=== PATIENT | male | born 1930 | race Caucasian/White ===

== ENCOUNTER 2017-06-22 10:30 | Emergency (ER) | payer MEDICARE, OTHER ==
--- NOTE | 2017-06-22 11:23 | ER Document Report ---
ED Medical Screen (RME) - General Chief Complaint: Ear Pain Stated Complaint: PAIN IN LEFT EAR Time Seen by Provider: 06/22/17 10:59 Mode of Arrival: Ambulatory Information source: Patient Notes: Patient is an 87-year-old male with 2 months of left ear pain, has been on one course of oral antibiotics for 5 days at the beginning of it who presents to the ER today because the [facility] nurse told him he needed to come "where ENT was on." Nurse told her charge nurse that he needed an urgent ENT referral. While speaking with the patient and I also found out that he has had months of constipation with approximately 1 month of dark and tarry stools. He is not on Pepto-Bismol or iron. He states that [facility] but [facility] have [facility] him off [facility] and put him on Metamucil to try to fix the "blood in my stool." He has had a colonoscopy but it has been many years. He denies abdominal pain. He takes aspirin 81 mg a day. TRAVEL OUTSIDE OF THE [place] IN LAST 30 DAYS: No - Related Data Allergies/Adverse Reactions: morphine [Morphine] Allergy (Intermediate, Verified 06/22/17 10:36) Hallucinations Past Medical History - General Information source: Patient - Past Medical History Cardiac Medical History: Reports: Hx Hypercholesterolemia - meds x 10 years, Hx Hypertension - meds x 30 years, Hx Heart Murmur - Dx'ed approx 6 years ago, denies SBE prophylaxis Denies: Hx Atrial Fibrillation, Hx Congestive Heart Failure, Hx Coronary Artery Disease, Hx Heart Attack, Hx Peripheral Vascular Disease Pulmonary Medical History: Neurological Medical History: Denies: Hx Cerebrovascular Accident, Hx Seizures Renal/ Medical History: Denies: Hx Benign Prostatic Hyperplasia, Hx End Stage Renal Disease, Hx Kidney Stones, Hx Peritoneal Dialysis GI Medical History: Reports: Hx Gastroesophageal Reflux Disease - Prilosec daily. Denies: Hx Crohn's Disease, Hx Hiatal Hernia, Hx Irritable Bowel, Hx Liver Failure, Hx Ulcer Musculoskeltal Medical History: Reports Hx Arthritis, Denies Hx Fibromyalgia, Denies Hx Multiple Sclerosis, Denies Hx Muscular Dystrophy Psychiatric Medical History: Reports: Hx Post Traumatic Stress Disorder - states Zoloft effective to decrease nighttime symptoms Denies: Hx Bipolar Disorder, Hx Dementia, Hx Depression, Hx Schizophrenia Traumatic Medical History: Reports: Hx Fractures - [place] (as child) Past Surgical History: Reports: Hx Appendectomy - 1953, Hx Herniorrhaphy - RT ing. 1991. Denies: Hx Bowel Surgery, Hx Cholecystectomy, Hx Colostomy, Hx Coronary Artery Bypass Graft, Hx Gastric Bypass Surgery, Hx Pacemaker, Hx Tonsillectomy Review of Systems - Review of Systems EENT: No symptoms reported Gastrointestinal: See HPI Physical Exam - Vital signs Vitals: Temp Pulse Resp BP Pulse Ox 97.6 F 71 16 156/68 H 97 06/22/17 10:34 06/22/17 10:34 06/22/17 10:34 06/22/17 10:34 06/22/17 10:34 - Notes Notes: PHYSICAL EXAMINATION: GENERAL: Well-appearing and in no acute distress. ENT: left ear canal with erythema, scarred appearance, dull and yellow TM NECK: Normal range of motion, supple without lymphadenopathy LUNGS: CTAB and equal. No wheezes rales or rhonchi. HEART: Regular rate and rhythm without murmurs ABDOMEN: Soft, no tenderness. No guarding, no rebound BACK: no vertebral tenderness, normal ROM GI/: no CVA tenderness EXTREMITIES: Normal range of motion, no pitting edema. No cyanosis. NEUROLOGICAL: Cranial nerves grossly intact. Normal sensory/motor exams. PSYCH: Normal mood, normal affect. SKIN: Warm, Dry, normal turgor, no rashes or lesions noted Course - Vital Signs Vital signs: Temp Pulse Resp BP Pulse Ox 97.6 F 71 16 156/68 H 97 06/22/17 10:34 06/22/17 10:34 06/22/17 10:34 06/22/17 10:34 06/22/17 10:34
--- NOTE | 2017-06-22 11:27 | ER Document Report ---
ED General - General Chief Complaint: Ear Pain Stated Complaint: PAIN IN LEFT EAR Time Seen by Provider: 06/22/17 10:59 Mode of Arrival: Ambulatory Information source: Patient Notes: Patient is an 87-year-old male with 2 months of left ear pain, has been on one course of oral antibiotics for 5 days at the beginning of it who presents to the ER today because the [facility] nurse told him he needed to come "where ENT was on." Nurse told her charge nurse that he needed an urgent ENT referral. While speaking with the patient and I also found out that he has had months of constipation with approximately 1 month of dark and tarry stools. He is not on Pepto-Bismol or iron. He states that he has told the [facility] this multiple times but they have taken him off medication and put him on Metamucil to try to fix the "blood in my stool." He has had a colonoscopy but it has been many years. He denies abdominal pain. He takes aspirin 81 mg a day. PHYSICAL EXAMINATION: TRAVEL OUTSIDE OF THE [place] IN LAST 30 DAYS: No - Related Data Allergies/Adverse Reactions: morphine [Morphine] Allergy (Intermediate, Verified 06/22/17 10:36) Hallucinations Past Medical History - General Information source: Patient - Social History Smoking Status: Never Smoker Family History: Reviewed & Not Pertinent - Past Medical History Cardiac Medical History: Reports: Hx Hypercholesterolemia - meds x 10 years, Hx Hypertension - meds x 30 years, Hx Heart Murmur - Dx'ed approx 6 years ago, denies SBE prophylaxis Denies: Hx Atrial Fibrillation, Hx Congestive Heart Failure, Hx Coronary Artery Disease, Hx Heart Attack, Hx Peripheral Vascular Disease Pulmonary Medical History: Neurological Medical History: Denies: Hx Cerebrovascular Accident, Hx Seizures Renal/ Medical History: Denies: Hx Benign Prostatic Hyperplasia, Hx End Stage Renal Disease, Hx Kidney Stones, Hx Peritoneal Dialysis GI Medical History: Reports: Hx Gastroesophageal Reflux Disease - Prilosec daily. Denies: Hx Crohn's Disease, Hx Hiatal Hernia, Hx Irritable Bowel, Hx Liver Failure, Hx Ulcer Musculoskeltal Medical History: Reports Hx Arthritis, Denies Hx Fibromyalgia, Denies Hx Multiple Sclerosis, Denies Hx Muscular Dystrophy Psychiatric Medical History: Reports: Hx Post Traumatic Stress Disorder - states Zoloft effective to decrease nighttime symptoms Denies: Hx Bipolar Disorder, Hx Dementia, Hx Depression, Hx Schizophrenia Traumatic Medical History: Reports: Hx Fractures - [place] (as child) Past Surgical History: Reports: Hx Appendectomy - 89, Hx Herniorrhaphy - RT ing. 1991. Denies: Hx Bowel Surgery, Hx Cholecystectomy, Hx Colostomy, Hx Coronary Artery Bypass Graft, Hx Gastric Bypass Surgery, Hx Pacemaker, Hx Tonsillectomy Review of Systems - Review of Systems Constitutional: No symptoms reported EENT: See HPI Cardiovascular: No symptoms reported Respiratory: No symptoms reported Gastrointestinal: See HPI Genitourinary: No symptoms reported Male Genitourinary: No symptoms reported Musculoskeletal: No symptoms reported Skin: No symptoms reported Hematologic/Lymphatic: No symptoms reported Neurological/Psychological: No symptoms reported Physical Exam - Vital signs Vitals: Temp Pulse Resp BP Pulse Ox 97.6 F 71 16 156/68 H 97 06/22/17 10:34 06/22/17 10:34 06/22/17 10:34 06/22/17 10:34 06/22/17 10:34 - Notes Notes: GENERAL: Well-appearing and in no acute distress. ENT: left ear canal with erythema, scarred appearance, dull and yellow TM NECK: Normal range of motion, supple without lymphadenopathy LUNGS: CTAB and equal. No wheezes rales or rhonchi. HEART: Regular rate and rhythm without murmurs ABDOMEN: Soft, mild periumbilical tenderness. No guarding, no rebound BACK: no vertebral tenderness, normal ROM GI/: no CVA tenderness rectal: normal tone, no obvious blood, no hemorrhoids noted EXTREMITIES: Normal range of motion, no pitting edema. No cyanosis. NEUROLOGICAL: Cranial nerves grossly intact. Normal sensory/motor exams. PSYCH: Normal mood, normal affect. SKIN: Warm, Dry, normal turgor, no rashes or lesions noted Course - Re-evaluation Re-evalutation: 06/22/17 18:30 Pt has a hgb of 12, negative occult stool today, I gave him ciprodex for his otitis externa from the ER to go home with for entire course and gave him info for GI and ENT to follow up with. - Vital Signs Vital signs: Temp Pulse Resp BP Pulse Ox 97.8 F 64 18 136/64 H 96 06/22/17 14:00 06/22/17 14:00 06/22/17 14:00 06/22/17 14:00 06/22/17 14:00 - Laboratory Result Diagrams: 06/22/17 11:50 06/22/17 11:50 Laboratory results interpreted by me: 06/22/17 06/22/17 06/22/17 11:25 11:50 11:50 RBC 3.93 L Hgb 12.5 L Hct 37.3 L Plt Count 120 L BUN 25 H AST 16 L Ur Leukocyte Esterase TRACE H Urine Ascorbic Acid 40 H Discharge - Discharge Clinical Impression: Dark stools Diffuse otitis externa, left ear Qualifiers: Chronicity: acute Qualified Code(s): H60.312 - Diffuse otitis externa, left ear Constipation Qualifiers: Constipation type: unspecified constipation type Qualified Code(s): K59.00 - Constipation, unspecified Condition: Stable Disposition: HOME, SELF-CARE Instructions: Use of Ear Drops ([facility]), Otitis Externa ([facility]) Additional Instructions: Return immediately for any new or worsening symptoms. Follow up with primary care provider, call tomorrow to make followup appointment. USE THE EAR DROPS, 4 DROPS IN THE LEFT EAR TWICE A DAY FOR 10 DAYS. CALL EAR NOSE AND THROAT BELOW TO MAKE AN APPOINTMENT TO CHECK THE EAR. CALL TODAY. CALL GASTROENTEROLOGY TO DISCUSS THE CONSTIPATION AND DARK STOOLS. CALL TODAY. Prescriptions: Polyethylene Glycol 3350 [Miralax] 1 cap PO DAILY #527 powder Referrals: VENKATA JACOBS MD [ACTIVE STAFF] - Follow up as needed [facility] [Provider Group] - Follow up as needed
[2017-06-22 11:55] LABS: APPEARANCE,URINE SLIGHTLY-CLOUDY; BILIRUBIN,URINE NEGATIVE (NEGATIVE); GLUCOSE, URINE NEGATIVE (NEGATIVE); KETONES,URINE NEGATIVE (NEGATIVE); LEUKOCYTE ESTERASE,URINE TRACE (NEGATIVE); NITRITE,URINE NEGATIVE (NEGATIVE); PROTEIN,URINE NEGATIVE (NEGATIVE); URINE SPECIFIC GRAVITY 1.016; UROBILINOGEN,URINE NEGATIVE mg/dL (<2.0)
[2017-06-22 12:38] LABS: ABSOLUTE LYMPHOCYTES (AUTO) 1.2 10^3/uL (0.5-4.7); ABSOLUTE MONOCYTES (AUTO) 0.5 10^3/uL (0.1-1.4); ABSOLUTE NEUT (AUTO) 4.6 10^3/uL (1.7-8.2); BASOPHILS % (AUTO) 0.4 % (0-2); EOSINOPHILS % (AUTO) 0.6 % (0-6); HEMATOCRIT 37.3 % (37.9-51.0); HEMOGLOBIN 12.5 g/dL (13.5-17.0); HGB HCT DIFFERENCE 0.2; LYMPHOCYTES % (AUTO) 18.8 % (13-45); MEAN CORPUSCULAR HEMOGLOBIN 31.9 pg (27.0-33.4); MEAN CORPUSCULAR HGB CONC 33.6 g/dL (32.0-36.0); MEAN CORPUSCULAR VOLUME 95 fl (80-97); MONOCYTES % (AUTO) 8.4 % (3-13); RED BLOOD COUNT 3.93 10^6/uL (4.35-5.55); SEGMENTED NEUTROPHILS % (AUTO) 71.8 % (42-78); WHITE BLOOD COUNT 6.4 10^3/uL (4.0-10.5)
[2017-06-22 12:54] LABS: ALANINE AMINOTRANSFERASE 24 U/L (21-72); ALBUMIN 3.7 g/dL (3.5-5.0); ALKALINE PHOSPHATASE 85 U/L (38-126); ANION GAP 8 (5-19); ASPARTATE AMINO TRANSFERASE 16 U/L (17-59); BILIRUBIN,DIRECT 0.3 mg/dL (0.0-0.4); BILIRUBIN,TOTAL 0.5 mg/dL (0.2-1.3); BLOOD UREA NITROGEN 25 mg/dL (7-20); CALCIUM 8.8 mg/dL (8.4-10.2); CARBON DIOXIDE 30 mmol/L (22-30); CHLORIDE 102 mmol/L (98-107); GLUCOSE 92 mg/dL (75-110); POTASSIUM 4.4 mmol/L (3.6-5.0); PROTHROMBIN TIME 13.5 SEC (11.4-15.4); SODIUM 139.8 mmol/L (137-145); TOTAL PROTEIN 6.4 g/dL (6.3-8.2)
[2017-06-22 12:55] LABS: PARTIAL THROMBOPLASTIN TIME 31.2 SEC (23.5-35.8)
[2017-06-22] MEDS ORDERED: CIPROFLOXACIN HCL/DEXAMETH OTIC DROP 7.5 ML AS ONE (13:45)
[2017-06-22 14:03] VITALS: BP 136/64
== END 2017-06-22 14:12 | disposition home or self-care (01) ==
LOC: ER 10:30
DX: H60.312 Diffuse otitis externa, left ear (principal); K59.00 Constipation, unspecified; R19.5 Other fecal abnormalities; H92.02 Otalgia, left ear; I10 Essential (primary) hypertension; Z79.82 Long term (current) use of aspirin; Z79.899 Other long term (current) drug therapy; Z88.5 Allergy status to narcotic agent; Z90.49 Acquired absence of other specified parts of digestive tract
CPT/HCPCS: 99283; 86900; 86901; 36415; 86850; 85025; 85610; 85730; 82272; 80053; 81001; J3490

== ENCOUNTER 2017-07-06 11:10 | Day surgery (SDC) | payer MEDICARE, OTHER ==
[2017-07-06] MEDS ORDERED: DIPHENHYDRAMINE HCL 50 MG/ML VIAL ONE (11:31)
[2017-07-06] MEDS ORDERED: ONDANSETRON HCL INJ/PF 4 MG/2 ML SDV ONE (11:32)
[2017-07-06] MEDS ORDERED: FENTANYL CITRATE INJ/PF 100 MCG/2 ML AMPUL ONE (11:32)
[2017-07-06] MEDS ORDERED: MIDAZOLAM 2 MG/2 ML INJ ONE ×2 (11:32)
[2017-07-06] MEDS ORDERED: NALOXONE HCL INJ/PF 0.4 MG/1 ML SDV ONE (11:32)
[2017-07-06] MEDS ORDERED: EPINEPHRINE INJ 1 MG/10 ML DISP.SYRIN ONE (11:33)
[2017-07-06] MEDS ORDERED: FLUMAZENIL INJ 0.5 MG/5 ML VIAL ONE (11:33)
[2017-07-06] MEDS ORDERED: GLUCAGON,HUMAN RECOMB 1 MG INJ ONE (11:33)
[2017-07-06 14:09] VITALS: BP 141/66
--- NOTE | 2017-07-06 14:11 | Operative Report ---
Operative Report DATE OF SURGERY: 07/06/17 Operative Report: The risks, benefits and alternatives of the procedure including risks of bleeding, perforation requiring surgery are explained to the patient detail and informed consent is obtained. Patient was taken back to the endoscopy suite and placed in the left, lateral decubital position. Timeout was called. Conscious sedation medications are provided. An Olympus videoscope was inserted into the patient's rectum. The scope was then carefully advanced all the way to the cecum. The cecum was identified by the usual anatomical landmarks of the ileocecal valve as well as the appendiceal office. Photodocumentation is obtained. Prep is good. Scope was then sequentially pulled back via the various segments of the colon including the ascending colon , hepatic flexure, transverse colon, splenic flexure, descending colon finding to the rectosigmoid portions of the colon. Retroflexion maneuver was performed. The risks benefits and alternatives of the procedure explained to the patient in detail and informed consent is obtained.A GIF Olympus video scope was inserted into the patient's mouth and hypopharynx the esophagus is identified intubated and insufflated, the scope was then advanced through the esophagus stomach and duodenum, retroflexion maneuver is done, the esophagus stomach and first and second portions of the duodenum examined PREOPERATIVE DIAGNOSIS: Melena. Change of bowel habits POSTOPERATIVE DIAGNOSIS: Mild inflammation in the colon. Polyp noted at the ascending colon area removed via snare polypectomy. Internal hemorrhoids. Gastritis noted status post biopsy rule out Helicobacter pylori. No active bleeding is noted OPERATION: Colonoscopy with snare polypectomy. EGD with biopsy SURGEON: VENKATA JACOBS ANESTHESIA: Moderate Sedation - 2 mg of Versed, 12.5 mg of fentanyl. Conscious sedation monitoring time 30 minutes. TISSUE REMOVED OR ALTERED: Tissue was removed noted above COMPLICATIONS: None. ESTIMATED BLOOD LOSS: None. INTRAOPERATIVE FINDINGS: As described above. PROCEDURE: Patient tolerated the procedure well. No immediate postprocedure complications are noted. Patient discharged in good condition. Discharge date 07/06/2017. Discharge diet: Regular. Discharge activity: Regular. 2-3 week follow-up to discuss findings. Patient is instructed to call the office or proceed to the emergency room should there be any further problems or questions. We will wait on pathology. While the patient does need a surveillance colonoscopy in 5 years at that point his overall performance status, and clinical condition will will dictate whether or not the colonoscopy is done
== END 2017-07-06 14:15 | disposition home or self-care (01) ==
LOC: END 11:10
PROVIDERS: ATTEND Internal Medicine Gastroenterology
PROC: 0DB68ZX Excision of Stomach, Via Natural or Artificial Opening Endoscopic, Diagnostic (ICD-10-PCS; principal; 2017-07-06 12:00)
PROC: 0DBK8ZX Excision of Ascending Colon, Via Natural or Artificial Opening Endoscopic, Diagnostic (ICD-10-PCS; 2017-07-06 12:00)
DX: K29.50 Unspecified chronic gastritis without bleeding (principal); D12.2 Benign neoplasm of ascending colon; K64.8 Other hemorrhoids; K52.9 Noninfective gastroenteritis and colitis, unspecified; R63.4 Abnormal weight loss; Z79.82 Long term (current) use of aspirin; Z79.899 Other long term (current) drug therapy; Z68.20 Body mass index [BMI] 20.0-20.9, adult
CPT/HCPCS: 43239; 45385; 88305 ×2; J2250; J3010; J0171; J1200; J1610; J2310; J2405; J3490

== ENCOUNTER 2017-09-23 21:28 | Emergency (ER) | payer MEDICARE, OTHER ==
[2017-09-23 21:55] VITALS: BP 159/75
--- NOTE | 2017-09-23 23:54 | ER Document Report ---
HPI - HPI Patient complains to provider of: Left ear pain, hearing aid will not fit in ear Onset: Other - Several days Onset/Duration: Persistent Quality of pain: Achy Pain Level: 3 Context: Patient complains of left ear discomfort and feels that his ear is swollen causing his hearing aid to not fit properly. Patient states he has been unable to wear his hearing aid. Patient did recently have skin biopsies performed on his left shoulder. Patient is concerned that he is having problems with his hearing aid due to his recent skin biopsies. Patient without any fever. Patient without any drainage from his ear. Associated Symptoms: Earache Exacerbated by: Denies Relieved by: Denies Similar symptoms previously: No Recently seen / treated by doctor: Yes - ROS ROS below otherwise negative: Yes Systems Reviewed and Negative: Yes All other systems reviewed and negative - CONSTITUTIONAL Constitutional: DENIES: Fever - EENT EENT: REPORTS: Ear Pain. DENIES: Congestion - RESPIRATORY Respiratory: DENIES: Coughing - GASTROINTESTINAL Gastrointestinal: DENIES: Nausea, Patient vomiting - REPRODUCTIVE Reproductive: DENIES: : - DERM Skin Color: Normal Notes: Wounds to left shoulder from recent skin biopsies Past Medical History - General Information source: Patient - Social History Smoking Status: Never Smoker Frequency of alcohol use: None Drug Abuse: None Occupation: Retired Family History: Reviewed & Not Pertinent - Past Medical History Cardiac Medical History: Reports: Hx Hypercholesterolemia - meds x 10 years, Hx Hypertension - HX OF (TOOK OFF MEDS), Hx Heart Murmur - Dx'ed approx 6 years ago , denies SBE prophylaxis Denies: Hx Atrial Fibrillation, Hx Congestive Heart Failure, Hx Coronary Artery Disease, Hx Heart Attack, Hx Peripheral Vascular Disease Pulmonary Medical History: Denies: Hx Asthma, Hx Bronchitis, Hx COPD, Hx Pneumonia Neurological Medical History: Denies: Hx Cerebrovascular Accident, Hx Seizures Renal/ Medical History: Denies: Hx Benign Prostatic Hyperplasia, Hx End Stage Renal Disease, Hx Kidney Stones, Hx Peritoneal Dialysis GI Medical History: Reports: Hx Gastroesophageal Reflux Disease - Prilosec daily. Denies: Hx Crohn's Disease, Hx Hiatal Hernia, Hx Irritable Bowel, Hx Liver Failure, Hx Pancreatitis, Hx Ulcer Musculoskeltal Medical History: Reports Hx Arthritis, Denies Hx Fibromyalgia, Denies Hx Multiple Sclerosis, Denies Hx Muscular Dystrophy Psychiatric Medical History: Reports: Hx Post Traumatic Stress Disorder - states Zoloft effective to decrease nighttime symptoms Denies: Hx Bipolar Disorder, Hx Dementia, Hx Depression, Hx Schizophrenia Traumatic Medical History: Reports: Hx Fractures - [place] (as child) Past Surgical History: Reports: Hx Appendectomy - 89, Hx Herniorrhaphy - RT ing. 1991. Denies: Hx Bowel Surgery, Hx Cholecystectomy, Hx Colostomy, Hx Coronary Artery Bypass Graft, Hx Gastric Bypass Surgery, Hx Pacemaker, Hx Tonsillectomy - Immunizations Hx Diphtheria, Pertussis, Tetanus Vaccination: No Vertical Provider Document - CONSTITUTIONAL Agree With Documented VS: Yes Exam Limitations: No Limitations General Appearance: WD/WN, No Apparent Distress - INFECTION CONTROL TRAVEL OUTSIDE OF THE [place] IN LAST 30 DAYS: No - HEENT HEENT: Atraumatic, Normocephalic Notes: Mild excess cerumen to left external auditory canal. No swelling to left external auditory canal, no drainage to canal. No mastoid tenderness or swelling. No pain with movement of the helix. - NECK Neck: Normal Inspection, Supple - RESPIRATORY Respiratory: Breath Sounds Normal, No Respiratory Distress O2 Sat by Pulse Oximetry: 94 - CARDIOVASCULAR Cardiovascular: Regular Rate, Regular Rhythm - MUSCULOSKELETAL/EXTREMETIES Musculoskeletal/Extremeties: MAEW - NEURO Level of Consciousness: Awake, Alert, Appropriate Motor/Sensory: No Motor Deficit - DERM Integumentary: Warm, Dry Notes: Patient skin biopsy site to left shoulder area, no surrounding erythema, wounds appear to be healing appropriately Course - Re-evaluation Re-evalutation: 09/24/17 Excessive cerumen removed from left ear canal with curette - Vital Signs Vital signs: Temp Pulse Resp BP Pulse Ox 98.5 F 67 18 159/75 H 94 09/23/17 21:52 09/23/17 21:52 09/23/17 21:52 09/23/17 21:52 09/23/17 21:52 Discharge - Discharge Clinical Impression: Otalgia of left ear, hearing aid not fitting, Excessive cerumen in left ear canal, Hx of essential hypertension Condition: Stable Disposition: HOME, SELF-CARE Instructions: Cerumen Impaction ([facility]) Additional Instructions: Follow-up with your doctor that fit you with the hearing aid for recheck Return immediately for any new or worsening symptoms Followup with your primary care provider, call tomorrow to make a followup appointment Referrals: [facility] [Provider Group] - Follow up as needed
== END 2017-09-24 00:01 | disposition home or self-care (01) ==
LOC: ER 21:28
DX: H92.02 Otalgia, left ear (principal); H61.22 Impacted cerumen, left ear; Z46.2 Encounter for fitting and adjustment of other devices related to nervous system and special senses; I10 Essential (primary) hypertension; E78.00 Pure hypercholesterolemia, unspecified
CPT/HCPCS: 99282

== ENCOUNTER 2018-04-11 18:47 | Inpatient (IN) | payer MEDICARE, OTHER ==
[2018-04-11 20:37] LABS: ABSOLUTE LYMPHOCYTES (AUTO) 0.9 10^3/uL (0.5-4.7); ABSOLUTE MONOCYTES (AUTO) 0.9 10^3/uL (0.1-1.4); ABSOLUTE NEUT (AUTO) 12.6 10^3/uL (1.7-8.2); BASOPHILS % (AUTO) 0.1 % (0-2); HEMATOCRIT 32.8 % (37.9-51.0); HEMOGLOBIN 11.1 g/dL (13.5-17.0); LYMPHOCYTES % (AUTO) 6.4 % (13-45); MEAN CORPUSCULAR HEMOGLOBIN 32.7 pg (27.0-33.4); MEAN CORPUSCULAR HGB CONC 33.8 g/dL (32.0-36.0); MEAN CORPUSCULAR VOLUME 97 fl (80-97); MONOCYTES % (AUTO) 6.3 % (3-13); PLATELET COUNT 141 10^3/uL (150-450); RED BLOOD COUNT 3.39 10^6/uL (4.35-5.55); SEGMENTED NEUTROPHILS % (AUTO) 87.2 % (42-78); TOTAL CELLS COUNTED % (AUTO) 100 %; WHITE BLOOD COUNT 14.5 10^3/uL (4.0-10.5)
--- NOTE | 2018-04-11 20:42 | RADIOLOGY REPORT (SQ) ---
EXAM DESCRIPTION: CT HEAD WITHOUT COMPLETED DATE/TIME: 04/11/2018 8:10 pm REASON FOR STUDY: fall COMPARISON: None. TECHNIQUE: Axial images acquired through the brain without intravenous contrast. Images reviewed wi th bone, brain and subdural windows. Images stored on PACS. All CT scanners at this facility use dose modulation, iterative reconstruction, and/or weight based d osing when appropriate to reduce radiation dose to as low as reasonably achievable (ALARA). [facility]: Dose Right [facility]: CareDose [facility]: Dose Right [facility]: Teradose 4D [facility]: Roomish RADIATION DOSE: CT Rad equipment meets quality standard of care and radiation dose reduction techniq ues were employed. CTDIvol: 53.2 mGy. DLP: 1017 mGy-cm. mGy. LIMITATIONS: None. FINDINGS: VENTRICLES: Age-appropriate. CEREBRUM: No masses. No hemorrhage. No midline shift. Areas of low density in the white matter mos t likely due to chronic micro-vascular ischemic change. No evidence for acute infarction. CEREBELLUM: No masses. No hemorrhage. No alteration of density. No evidence for acute infarction. EXTRAAXIAL SPACES: Mild age-related involutional change. No fluid collections. No masses. ORBITS AND GLOBE: No intra- or extraconal masses. Normal contour of globe without masses. CALVARIUM: No fracture. PARANASAL SINUSES: No fluid or mucosal thickening. SOFT TISSUES: No mass or hematoma. OTHER: No other significant finding. IMPRESSION: No acute intracranial findings. EVIDENCE OF ACUTE STROKE: NO. TECHNICAL DOCUMENTATION: JOB ID: [id number] [place]-72 Quality ID # [id number]: Final reports with documentation of one or more dose reduction techniques (e.g., Au tomated exposure control, adjustment of the mA and/or kV according to patient size, use of iterative reconstruction technique) 2010 [employer]- All Rights Reserved Reading location - IP/workstation name: [email or web address]
--- NOTE | 2018-04-11 20:44 | RADIOLOGY REPORT (SQ) ---
EXAM DESCRIPTION: CT CERVICAL SPINE WITHOUT COMPLETED DATE/TIME: 04/11/2018 8:10 pm REASON FOR STUDY: fall COMPARISON: None. TECHNIQUE: Axial images acquired through the cervical spine without intravenous contrast. Images re viewed with lung, soft tissue and bone windows. Reconstructed coronal and sagittal MPR images review ed. Images stored on PACS. All CT scanners at this facility use dose modulation, iterative reconstruction, and/or weight based d osing when appropriate to reduce radiation dose to as low as reasonably achievable (ALARA). [facility]: Dose Right [facility]: CareDose [facility]: Dose Right [facility]: Teradose 4D [facility]: [employer] RADIATION DOSE: CT Rad equipment meets quality standard of care and radiation dose reduction techniq ues were employed. CTDIvol: 22.2 mGy. DLP: 456 mGy-cm. mGy. LIMITATIONS: None. FINDINGS: ALIGNMENT: Anatomic. MINERALIZATION: Normal. VERTEBRAL BODIES: No fractures or dislocation. DISCS: Multilevel disc space narrowing with osteophytes. FACETS, LATERAL MASSES, POSTERIOR ELEMENTS: Facet arthropathy. No fractures. No dislocation. No ac [place] findings. HARDWARE: None in the spine. VISUALIZED RIBS: No fractures. LUNG APICES AND SOFT TISSUES: No significant or acute findings. OTHER: No other significant finding. IMPRESSION: CHRONIC DEGENERATIVE CHANGES. NO ACUTE FINDINGS. TECHNICAL DOCUMENTATION: JOB ID: [id number] [place]-72 Quality ID # [id number]: Final reports with documentation of one or more dose reduction techniques (e.g., Au tomated exposure control, adjustment of the mA and/or kV according to patient size, use of iterative reconstruction technique) 2010 [employer]- All Rights Reserved Reading location - IP/workstation name: [email or web address]
--- NOTE | 2018-04-11 20:46 | RADIOLOGY REPORT (SQ) ---
EXAM DESCRIPTION: PELVIS AP COMPLETED DATE/TIME: 04/11/2018 8:11 pm REASON FOR STUDY: fall COMPARISON: None. NUMBER OF VIEWS: One view TECHNIQUE: AP Pelvis LIMITATIONS: None. FINDINGS: MINERALIZATION: Normal. HIPS: No acute fracture or dislocation. No worrisome bone lesions. PELVIS AND SACRUM: No acute fracture or dislocation. No worrisome bone lesions. PUBIS AND ISCHIUM: No acute fracture. LOWER LUMBAR SPINE: Moderate degenerative changes. SOFT TISSUES: No findings. OTHER: No other significant finding. IMPRESSION: No fracture identified. TECHNICAL DOCUMENTATION: JOB ID: [id number] [place]-72 2010 [employer]- All Rights Reserved Reading location - IP/workstation name: [email or web address]
--- NOTE | 2018-04-11 20:50 | RADIOLOGY REPORT (SQ) ---
EXAM DESCRIPTION: KNEE RIGHT 4 VIEWS COMPLETED DATE/TIME: 04/11/2018 8:11 pm REASON FOR STUDY: fall COMPARISON: None. NUMBER OF VIEWS: Four views. TECHNIQUE: AP, lateral, and both oblique radiographic images acquired of the right knee. LIMITATIONS: None. FINDINGS: MINERALIZATION: Osteopenia. BONES: No acute fracture or dislocation. Right total knee arthroplasty hardware appears stable. . JOINT: Small effusion. SOFT TISSUES: No soft tissue swelling. No radio-opaque foreign body. OTHER: No other significant finding. IMPRESSION: Small joint effusion. No fracture identified. TECHNICAL DOCUMENTATION: JOB ID: [id number] [place]-72 2010 [employer]- All Rights Reserved Reading location - IP/workstation name: [email or web address]
[2018-04-11] MEDS ORDERED: NORMAL SALINE 1000 ML 1,000 ML IV ONE ×2 (20:51→21:53)
--- NOTE | 2018-04-11 20:59 | ER Document Report ---
ED General - General Chief Complaint: Fall Stated Complaint: FALL GENERALIZED PAIN Time Seen by Provider: 04/11/18 19:07 Mode of Arrival: Medic Information source: Patient, Relative, [facility] Records Notes: 87-year-old male with spinal stenosis, neuropathy, chronic leg pain presents via EMS from home after his son found him laying on the ground at home. Patient does not recall the fall. He is alert and oriented 2 which the son's report is not his baseline. Last seen well was yesterday evening. Patient does have a history of frequent falls. He was recently seen by orthopedic surgery and an MRI was performed. Family reports that the patient is to undergo spinal injections tomorrow. Patient is not on any blood thinning medications. TRAVEL OUTSIDE OF THE [place] IN LAST 30 DAYS: No - HPI Onset: Other Onset/Duration: Sudden, Persistent Quality of pain: Burning, Throbbing Associated symptoms: denies: Chest pain, Shortness of breath Exacerbated by: Denies Relieved by: Denies Similar symptoms previously: Yes Recently seen / treated by doctor: No - Related Data Allergies/Adverse Reactions: morphine [Morphine] Allergy (Intermediate, Verified 04/11/18 19:05) Hallucinations Past Medical History - General Information source: Relative, [facility] Records Cannot obtain history due to: Altered mental status - Social History Smoking Status: Unknown if Ever Smoked Frequency of alcohol use: None Drug Abuse: None Lives with: Alone Family History: Reviewed & Not Pertinent Patient has suicidal ideation: No Patient has homicidal ideation: No - Past Medical History Cardiac Medical History: Reports: Hx Hypercholesterolemia - meds x 10 years, Hx Hypertension - HX OF (TOOK OFF MEDS), Hx Heart Murmur - Dx'ed approx 6 years ago , denies SBE prophylaxis Denies: Hx Atrial Fibrillation, Hx Congestive Heart Failure, Hx Coronary Artery Disease, Hx Heart Attack, Hx Peripheral Vascular Disease Pulmonary Medical History: Denies: Hx Asthma, Hx Bronchitis, Hx COPD, Hx Pneumonia Neurological Medical History: Denies: Hx Cerebrovascular Accident, Hx Seizures Renal/ Medical History: Denies: Hx Benign Prostatic Hyperplasia, Hx End Stage Renal Disease, Hx Kidney Stones, Hx Peritoneal Dialysis GI Medical History: Reports: Hx Gastroesophageal Reflux Disease - Prilosec daily. Denies: Hx Crohn's Disease, Hx Hiatal Hernia, Hx Irritable Bowel, Hx Liver Failure, Hx Pancreatitis, Hx Ulcer Musculoskeltal Medical History: Reports Hx Arthritis, Denies Hx Fibromyalgia, Denies Hx Multiple Sclerosis, Denies Hx Muscular Dystrophy Psychiatric Medical History: Reports: Hx Post Traumatic Stress Disorder - states Zoloft effective to decrease nighttime symptoms Denies: Hx Bipolar Disorder, Hx Dementia, Hx Depression, Hx Schizophrenia Traumatic Medical History: Reports: Hx Fractures - carrington arms (as child) Past Surgical History: Reports: Hx Appendectomy - 1952, Hx Herniorrhaphy - RT ing. 1991. Denies: Hx Bowel Surgery, Hx Cholecystectomy, Hx Colostomy, Hx Coronary Artery Bypass Graft, Hx Gastric Bypass Surgery, Hx Pacemaker, Hx Tonsillectomy - Immunizations Hx Diphtheria, Pertussis, Tetanus Vaccination: No Review of Systems - Review of Systems Constitutional: Malaise, Weakness EENT: denies: Blurred vision Cardiovascular: denies: Chest pain, Palpitations Respiratory: denies: Short of breath Gastrointestinal: denies: Abdominal pain Genitourinary: denies: Dysuria, Flank pain, Incontinence Male Genitourinary: No symptoms reported Musculoskeletal: Back pain, Muscle pain, Muscle stiffness. denies: Deformity Skin: Dryness Hematologic/Lymphatic: denies: Easy bleeding Neurological/Psychological: Confusion, Weakness, Gait changes -: Yes All other systems reviewed and negative Physical Exam - Vital signs Vitals: Resp BP Pulse Ox 20 140/62 H 99 04/11/18 19:34 04/11/18 19:34 04/11/18 19:34 - Notes Notes: PHYSICAL EXAMINATION: GENERAL: Well-appearing, well-nourished and in no acute distress. HEAD: Atraumatic, normocephalic. EYES: Pupils equal round and reactive to light, extraocular movements intact, sclera anicteric, conjunctiva are normal. ENT: Nares patent, oropharynx clear without exudates. dry mucous membranes. NECK: Normal range of motion, supple without lymphadenopathy LUNGS: Breath sounds clear to auscultation bilaterally and equal. No wheezes rales or rhonchi. HEART: Regular rate and rhythm without murmurs ABDOMEN: Soft, nontender, nondistended abdomen. No guarding, no rebound. No masses appreciated. Musculoskeletal: Normal range of motion, no pitting or edema. No cyanosis. Bilateral knee scar C/D/I/ mild erythema to the left hand. pelvis stable. No obvious deformity NEUROLOGICAL: Cranial nerves grossly intact. Normal sensory, motor exams. Patient alert and oriented 2. Amnestic to events. PSYCH: Normal mood, normal affect. SKIN: Warm, Dry, normal turgor, no rashes or lesions noted. Course - Re-evaluation Re-evalutation: Laboratory 04/11/18 04/11/18 04/11/18 20:30 20:30 20:30 WBC 14.5 H RBC 3.39 L Hgb 11.1 L Hct 32.8 L MCV 97 MCH 32.7 MCHC 33.8 RDW 12.0 Plt Count 141 L Seg Neutrophils % 87.2 H Lymphocytes % 6.4 L Monocytes % 6.3 Eosinophils % 0.0 Basophils % 0.1 Absolute Neutrophils 12.6 H Absolute Lymphocytes 0.9 Absolute Monocytes 0.9 Absolute Eosinophils 0.0 Absolute Basophils 0.0 Sodium 142.1 Potassium 4.4 Chloride 109 H Carbon Dioxide 25 Anion Gap 8 BUN 22 H Creatinine 0.86 Est GFR ( Amer) > 60 Est GFR (Non-Af Amer) > 60 Glucose 114 H Calcium 9.0 Total Bilirubin 1.5 H Direct Bilirubin 0.3 Neonat Total Bilirubin Not Reportable Neonat Direct Bilirubin Not Reportable Neonat Indirect Bili Not Reportable AST 67 H ALT 37 Alkaline Phosphatase 77 Creatine Kinase 1425 H CK-MB (CK-2) 13.60 H Troponin I 0.021 Total Protein 5.8 L Albumin 3.[address] 04/11/18 19:09 IMPRESSION: No acute intracranial findings. EVIDENCE OF ACUTE STROKE: NO. Pelvis X-Ray 04/11/18 19:09 IMPRESSION: No fracture identified. Cervical Spine CT 04/11/18 19:20 IMPRESSION: CHRONIC DEGENERATIVE CHANGES. NO ACUTE FINDINGS. Knee X-Ray 04/11/18 19:21 IMPRESSION: Small joint effusion. No fracture identified. 04/11/18 22:27 Hospitalist consulted for admission 04/11/18 22:27 04/11/18 23:06 87-year-old male with spinal stenosis, neuropathy, chronic leg pain presents via EMS from home after his son found him laying on the ground at home. Patient does not recall the fall. He is alert and oriented 2 which the son's report is not his baseline. Last seen well was yesterday evening. Patient does have a history of frequent falls. Patient was seen by myself upon arrival. Vital signs were reviewed. Patient is afebrile, normotensive and not hypoxic. Patient does not appear toxic he does appear mildly dehydrated. They are in no acute distress. Previous medical records and nursing notes reviewed. Significant findings include CBC with a leukocytosis and mild anemia. CMP is without electrolyte abnormalities. Patient does have a elevated CK-MB and CK. Urinalysis is not consistent with infection. CT of the head and neck were obtained and showed no acute findings. X-ray of the right knee was obtained and significant for a small joint effusion but no fracture. Pelvis x-ray is without fracture. Patient did receive IV fluids. Sons are at the bedside and reports that the patient is a full code. He lives alone and has recently had physical therapy started. Sons have discussed with the patient his ability to care for himself in this patient remains persistent that he wants to stay in his house. Patient admitted to the hospitalist for altered mental status, rhabdomyolysis. 04/11/18 23:06 04/11/18 23:45 - Vital Signs Vital signs: Temp Pulse Resp BP Pulse Ox 98.3 F 74 15 114/65 95 04/11/18 19:36 04/11/18 19:36 04/11/18 23:01 04/11/18 23:01 04/11/18 23:01 - Laboratory Result Diagrams: 04/11/18 20:30 04/11/18 20:30 Laboratory results interpreted by me: 04/11/18 04/11/18 04/11/18 20:30 20:30 20:30 WBC 14.5 H RBC 3.39 L Hgb 11.1 L Hct 32.8 L Plt Count 141 L Seg Neutrophils % 87.2 H Lymphocytes % 6.4 L Absolute Neutrophils 12.6 H Chloride 109 H BUN 22 H Glucose 114 H Total Bilirubin 1.5 H AST 67 H Creatine Kinase 1425 H CK-MB (CK-2) 13.60 H Total Protein 5.8 L Albumin 3.2 L 04/11/18 04/11/18 22:40 22:40 WBC RBC Hgb Hct Plt Count Seg Neutrophils % Lymphocytes % Absolute Neutrophils Chloride BUN Glucose Total Bilirubin AST Creatine Kinase 1264 H CK-MB (CK-2) 11.70 H Total Protein Albumin - Diagnostic Test Radiology reviewed: Image reviewed, Reports reviewed - EKG Interpretation by Me EKG shows normal: Sinus rhythm Rate: Normal Rhythm: NSR Discharge - Discharge Clinical Impression: Confusion, Dehydration Fall Qualifiers: Encounter type: initial encounter Qualified Code(s): W19.XXXA - Unspecified fall, initial encounter Rhabdomyolysis Qualifiers: Rhabdomyolysis type: traumatic Encounter type: initial encounter Qualified Code (s): T79.6XXA - Traumatic ischemia of muscle, initial encounter Chronic back pain Qualifiers: Back pain location: low back pain Back pain laterality: bilateral Sciatica presence: with sciatica Sciatica laterality: sciatica laterality unspecified Qualified Code(s): M54.40 - Lumbago with sciatica, unspecified side Spinal stenosis Qualifiers: Spinal region: unspecified Qualified Code(s): M48.00 - Spinal stenosis, site unspecified Condition: Good Disposition: ADMITTED OBSERVATION Admitting Provider: Hospitalist Unit Admitted: Telemetry
[2018-04-11 21:04] LABS: ALANINE AMINOTRANSFERASE 37 U/L (21-72); ALBUMIN 3.2 g/dL (3.5-5.0); ALKALINE PHOSPHATASE 77 U/L (38-126); ANION GAP 8 (5-19); ASPARTATE AMINO TRANSFERASE 67 U/L (17-59); BILIRUBIN,DIRECT 0.3 mg/dL (0.0-0.4); BILIRUBIN,TOTAL 1.5 mg/dL (0.2-1.3); BLOOD UREA NITROGEN 22 mg/dL (7-20); CARBON DIOXIDE 25 mmol/L (22-30); CHLORIDE 109 mmol/L (98-107); CREATINE KINASE 1425 U/L (55-170); GLUCOSE 114 mg/dL (75-110); POTASSIUM 4.4 mmol/L (3.6-5.0); SODIUM 142.1 mmol/L (137-145); TOTAL PROTEIN 5.8 g/dL (6.3-8.2)
[2018-04-11 21:05] LABS: CREATINE KINASE MB 13.6 ng/mL (<4.55)
[2018-04-11 21:43] LABS: TROPONIN I 0.021 ng/mL
--- NOTE | 2018-04-11 22:31 | EKG REPORT ---
SEVERITY:- NORMAL ECG - SINUS RHYTHM : Confirmed by: Ellen Martin MD 11-Apr-2018 22:30:51
[2018-04-11] MEDS ORDERED: IPRATROPIUM/ALBUTEROL 0.5-2.5 MG/3 ML AMPUL NEB PRN (22:36)
[2018-04-11] MEDS ORDERED: MAGNESIUM HYDROXIDE SUSP 30 ML UDCUP PO PRN (22:36)
[2018-04-11] MEDS ORDERED: MAG HYDROX/AL HYDROX/SIMETH SUSP 30 ML UDCUP PO PRN (22:36)
[2018-04-11 22:40] LABS: APPEARANCE,URINE SLIGHTLY-CLOUDY; BILIRUBIN,URINE NEGATIVE (NEGATIVE); COLOR,URINE YELLOW; GLUCOSE, URINE NEGATIVE (NEGATIVE); KETONES,URINE NEGATIVE (NEGATIVE); LEUKOCYTE ESTERASE,URINE NEGATIVE (NEGATIVE); NITRITE,URINE NEGATIVE (NEGATIVE); PROTEIN,URINE NEGATIVE (NEGATIVE); URINE SPECIFIC GRAVITY 1.021; UROBILINOGEN,URINE NEGATIVE mg/dL (<2.0)
[2018-04-11] MEDS ORDERED: NORMAL SALINE 1000 ML 1,000 ML IV SCH (22:45)
[2018-04-11 23:23] LABS: CREATINE KINASE MB 11.7 ng/mL (<4.55); TROPONIN I 0.02 ng/mL
[2018-04-11 23:30] LABS: URINE AMPHETAMINES SCREEN NEGATIVE; URINE BARBITURATES SCREEN NEGATIVE; URINE BENZODIAZEPINES SCREEN NEGATIVE; URINE COCAINE SCREEN NEGATIVE; URINE MARIJUANA (THC) SCREEN NEGATIVE; URINE METHADONE SCREEN NEGATIVE; URINE PHENCYCLIDINE SCREEN NEGATIVE
[2018-04-12] MEDS: HEPARIN SOD (PORCINE) 5,000 UNIT/ML 1 ML SYRINGE SUBCUT SCH ×3 (05:01→22:41)
--- NOTE | 2018-04-12 05:09 | PDOC H&P ---
History of Present Illness Admission Date/PCP: 04/11/18 22:44 Patient complains of: Altered mental status History of Present Illness: JETT MARSH is a 87 year old male with history of PTSD, hypertension, dyslipidemia, osteoarthritis, spinal stenosis, gait instability with frequent falls and chronic pain. Patient presents via EMS from home after he was found laying on the ground at home, not recalling a fall he is alert oriented 2 with pinpoint pupils he was last seen at baseline 12 hours prior. Patient recently seen by orthopedic surgery with a scheduled epidural tomorrow April 12, 2018. In the emergency room he has an unremarkable imaging and workup with exception to elevated total CK of 1425 and leukocytosis without fever. He is referred to the hospitalist. Patient denies previous episode denies new medications however patient is known to have a supply of pain medication not retrieved by EMS. Past Medical History Cardiac Medical History: Reports: Hyperlipidema - meds x 10 years, Hypertension - HX OF (TOOK OFF MEDS), Heart Murmur - Dx'ed approx 6 years ago, denies SBE prophylaxis Denies: Atrial Fibrillation, Congestive Heart Failure, Coronary Artery Disease, Myocardial Infarction, Peripheral Vascular Disease Pulmonary Medical History: Denies: Asthma, Bronchitis, Chronic Obstructive Pulmonary Disease (COPD), Pneumonia Neurological Medical History: Denies: Seizures Renal/ Medical History: Denies: End Stage Renal Disease GI Medical History: Reports: Gastroesophageal Reflux Disease - Prilosec daily Denies: Crohn's Disease, Hiatal Hernia Musculoskeltal Medical History: Reports: Arthritis Denies: Fibromyalgia Psychiatric Medical History: Reports: Post Traumatic Stress Disorder - states Zoloft effective to decrease nighttime symptoms Denies: Bipolar Disorder, Dementia, Depression Hematology: Denies: Anemia Past Surgical History Past Surgical History: Reports: Appendectomy - 1952, Herniorrhaphy - RT ing. 1991 Denies: Cholecystectomy, Colostomy, Coronary Artery Bypass Graft, Gastric Bypass Surgery, Pacemaker, Tonsillectomy Social History Information Source: Patient, Relative Lives with: Alone Smoking Status: Unknown if Ever Smoked Frequency of Alcohol Use: None Hx Recreational Drug Use: No Drugs: None Hx Prescription Drug Abuse: No - Advance Directive Resuscitation Status: Full Code Family History Family History: Hypertension Parental Family History Reviewed: Yes Children Family History Reviewed: Yes Sibling(s) Family History Reviewed.: Yes Medication/Allergy Home Medications: Aspirin [Aspirin 81 mg Chewable Tablet] 81 mg PO QAM 06/18/13 Gabapentin [Neurontin 100 Mg Capsule] 100 mg PO BID 04/23/13 Multivitamin [Multi Vitamin Daily] 1 each PO QAM 04/23/13 Saw [place] 500 mg PO QAM 04/23/13 Simvastatin 20 mg PO QHS 04/23/13 Tamsulosin HCl 0.4 mg PO QHS 04/23/13 Polyethylene Glycol 3350 [Miralax] 1 cap PO DAILY #527 powder 06/22/17 Iron 65 mg PO DAILY 07/06/17 Multivit-Min/Folic/Vit K/Lycop [Men's Daily Formula Tablet] 1 each PO DAILY Sertraline HCl 50 mg PO QHS 07/06/17 Allergies/Adverse Reactions: morphine [Morphine] Allergy (Intermediate, Verified 04/11/18 19:05) Hallucinations Review of Systems ROS unobtainable: Due to mental status Physical Exam Vital Signs: Temp Pulse Resp BP Pulse Ox 98.4 F 73 18 130/54 H 99 04/12/18 04:00 04/12/18 04:00 04/12/18 04:00 04/12/18 04:00 04/12/18 04:00 Intake & Output 04/10/18 04/11/18 04/12/18 11:59 11:59 11:59 Weight 69.5 kg General appearance: PRESENT: no acute distress, cooperative, thin Head exam: PRESENT: atraumatic, normocephalic Eye exam: PRESENT: conjunctiva pink, EOMI, PERRLA. ABSENT: scleral icterus Ear exam: PRESENT: normal external ear exam Mouth exam: PRESENT: moist, tongue midline Neck exam: ABSENT: carotid bruit, JVD, lymphadenopathy, thyromegaly Respiratory exam: PRESENT: clear to auscultation [place]. ABSENT: rales, rhonchi, wheezes Cardiovascular exam: PRESENT: RRR. ABSENT: diastolic murmur, rubs, systolic murmur Pulses: PRESENT: normal dorsalis pedis pul Vascular exam: PRESENT: normal capillary refill GI/Abdominal exam: PRESENT: normal bowel sounds, soft. ABSENT: distended, guarding, mass, organolmegaly, rebound, tenderness Rectal exam: PRESENT: deferred Extremities exam: PRESENT: full ROM. ABSENT: calf tenderness, clubbing, pedal edema Neurological exam: PRESENT: alert, awake, oriented to person, oriented to place , oriented to time, oriented to situation, CN II-XII grossly intact. ABSENT: motor sensory deficit Psychiatric exam: PRESENT: appropriate affect, normal mood. ABSENT: homicidal ideation, suicidal ideation Skin exam: PRESENT: dry, intact, warm. ABSENT: cyanosis, rash Results Impressions: Head CT 04/11/18 19:09 IMPRESSION: No acute intracranial findings. EVIDENCE OF ACUTE STROKE: NO. Pelvis X-Ray 04/11/18 19:09 IMPRESSION: No fracture identified. Cervical Spine CT 04/11/18 19:20 IMPRESSION: CHRONIC DEGENERATIVE CHANGES. NO ACUTE FINDINGS. Knee X-Ray 04/11/18 19:21 IMPRESSION: Small joint effusion. No fracture identified. Assessment & Plan - Diagnosis (1) Acute encephalopathy Is this a current diagnosis for this admission?: Yes Plan: Likely secondary to opiate agent given pinpoint pupils, and history of present illness. Supportive care (2) Chronic back pain Qualifiers: Back pain location: low back pain Back pain laterality: bilateral Sciatica presence: with sciatica Sciatica laterality: sciatica laterality unspecified Qualified Code(s): M54.40 - Lumbago with sciatica, unspecified side; G89.29 - Other chronic pain; G89.29 - Other chronic pain Is this a current diagnosis for this admission?: Yes Plan: Nonnarcotic management (3) Dehydration Is this a current diagnosis for this admission?: Yes Plan: IV fluid challenge (4) Fall Qualifiers: Encounter type: initial encounter Qualified Code(s): W19.XXXA - Unspecified fall, initial encounter Is this a current diagnosis for this admission?: Yes Plan: Physical therapy evaluation, fall precautions (5) Rhabdomyolysis Qualifiers: Rhabdomyolysis type: traumatic Encounter type: initial encounter Qualified Code(s): T79.6XXA - Traumatic ischemia of muscle, initial encounter Is this a current diagnosis for this admission?: Yes Plan: Secondary to prolonged time down, IV fluid challenge, follow-up total CK and chemistry. - Time Time Spent: 50 to 70 Minutes - Inpatient Certification Medical Necessity: Need Close Monitoring Due to Risk of Patient Decompensation
--- NOTE | 2018-04-12 06:14 | PDOC CONSULTATION ---
Consultation Consult Date: 04/12/18 Consult reason:: 87-year-old white male with significant lumbar degenerative disc disease now status post fall History of Present Illness Admission Date/PCP: 04/11/18 22:44 History of Present Illness: JETT MARSH is a 87 year old very proud white male known to me from recent outpatient evaluation of his lumbar spine. Patient had been scheduled to be seen by pain management this morning for consideration of epidural steroid injections. In the interim he has fallen and has now been admitted to the hospital. The patient does not remember the fall. Patient currently lives independently. This was discussed with his son at a recent outpatient office visit Past Medical History Cardiac Medical History: Reports: Hyperlipidema - meds x 10 years, Hypertension - HX OF (TOOK OFF MEDS), Heart Murmur - Dx'ed approx 6 years ago, denies SBE prophylaxis Denies: Atrial Fibrillation, Congestive Heart Failure, Coronary Artery Disease, Myocardial Infarction, Peripheral Vascular Disease Pulmonary Medical History: Denies: Asthma, Bronchitis, Chronic Obstructive Pulmonary Disease (COPD), Pneumonia Neurological Medical History: Denies: Seizures Renal/ Medical History: Denies: End Stage Renal Disease GI Medical History: Reports: Gastroesophageal Reflux Disease - Prilosec daily Denies: Crohn's Disease, Hiatal Hernia Musculoskeltal Medical History: Reports: Arthritis Denies: Fibromyalgia Psychiatric Medical History: Reports: Post Traumatic Stress Disorder - states Zoloft effective to decrease nighttime symptoms Denies: Bipolar Disorder, Dementia, Depression Hematology: Denies: Anemia Past Surgical History Past Surgical History: Reports: Appendectomy - 1952, Herniorrhaphy - RT ing. 1991 Denies: Cholecystectomy, Colostomy, Coronary Artery Bypass Graft, Gastric Bypass Surgery, Pacemaker, Tonsillectomy Social History Information Source: Patient, [facility] Records Lives with: Alone Smoking Status: Unknown if Ever Smoked Frequency of Alcohol Use: None Hx Recreational Drug Use: No Drugs: None Hx Prescription Drug Abuse: No - Advance Directive Resuscitation Status: Full Code Family History Family History: Hypertension Parental Family History Reviewed: No Children Family History Reviewed: No Sibling(s) Family History Reviewed.: No Medication/Allergy Home Medications: Aspirin [Aspirin 81 mg Chewable Tablet] 81 mg PO QAM 04/23/13 Gabapentin [Neurontin 100 Mg Capsule] 100 mg PO BID 04/23/13 Multivitamin [Multi Vitamin Daily] 1 each PO QAM 04/23/13 Saw [place] 500 mg PO QAM 04/23/13 Simvastatin 20 mg PO QHS 04/23/13 Tamsulosin HCl 0.4 mg PO QHS 04/23/13 Polyethylene Glycol 3350 [Miralax] 1 cap PO DAILY #527 powder 06/22/17 Iron 65 mg PO DAILY 07/06/17 Multivit-Min/Folic/Vit K/Lycop [Men's Daily Formula Tablet] 1 each PO DAILY Sertraline HCl 50 mg PO QHS 07/06/17 Allergies/Adverse Reactions: morphine [Morphine] Allergy (Intermediate, Verified 04/11/18 19:05) Hallucinations Review of Systems All systems: as per PMH Physical Exam Vital Signs: Temp Pulse Resp BP Pulse Ox 36.9 C 73 18 130/54 H 99 04/12/18 04:00 04/12/18 04:00 04/12/18 04:00 04/12/18 04:00 04/12/18 04:00 Intake & Output 04/10/18 04/11/18 04/12/18 06:59 06:59 06:59 Weight 69.5 kg Physical Exam: Elderly white male lying in hospital bed. He is alert oriented and appropriate. General appearance: PRESENT: no acute distress Head exam: PRESENT: normocephalic Respiratory exam: PRESENT: unlabored Cardiovascular exam: PRESENT: RRR Pulses: PRESENT: +1 pedal pulses bilateral Vascular exam: PRESENT: normal capillary refill GI/Abdominal exam: PRESENT: soft Rectal exam: PRESENT: deferred Extremities exam: PRESENT: other - Left dorsal wrist bruise Neurological exam: PRESENT: alert, awake, oriented to person, oriented to place , oriented to time, oriented to situation. ABSENT: motor sensory deficit Psychiatric exam: PRESENT: appropriate affect, normal mood. ABSENT: homicidal ideation, suicidal ideation Results Impressions: Head CT 04/11/18 19:09 IMPRESSION: No acute intracranial findings. EVIDENCE OF ACUTE STROKE: NO. Pelvis X-Ray 04/11/18 19:09 IMPRESSION: No fracture identified. Cervical Spine CT 04/11/18 19:20 IMPRESSION: CHRONIC DEGENERATIVE CHANGES. NO ACUTE FINDINGS. Knee X-Ray 04/11/18 19:21 IMPRESSION: Small joint effusion. No fracture identified. Status: Imported from PACS Assessment & Plan - Diagnosis (1) Lumbar foraminal stenosis Is this a current diagnosis for this admission?: Yes (2) Lumbar canal stenosis Is this a current diagnosis for this admission?: Yes Plan: 87-year-old white male currently in an independent living status with increasingly frequent falls in spite of ambulating with a walker. Patient had recent axial imaging at [facility] including an MRI scan demonstrating lumbar stenosis. Tentative plan was for pain management consult this morning on an outpatient basis. A pain management consult has been requested for consideration of epidural steroid injection. - Time Time Spent: 50 to 70 Minutes Anticipated discharge: Other Within: Other - Plan Summary Plan Summary: The patient's independent living status probably needs to be examined and potentially addressed prior to discharge.
[2018-04-12 07:07] LABS: ABSOLUTE LYMPHOCYTES (AUTO) 0.8 10^3/uL (0.5-4.7); ABSOLUTE MONOCYTES (AUTO) 0.6 10^3/uL (0.1-1.4); ABSOLUTE NEUT (AUTO) 7.8 10^3/uL (1.7-8.2); BASOPHILS % (AUTO) 0.3 % (0-2); EOSINOPHILS % (AUTO) 0.2 % (0-6); HEMATOCRIT 29.5 % (37.9-51.0); HEMOGLOBIN 10.1 g/dL (13.5-17.0); LYMPHOCYTES % (AUTO) 8.7 % (13-45); MEAN CORPUSCULAR HEMOGLOBIN 33.1 pg (27.0-33.4); MEAN CORPUSCULAR HGB CONC 34.3 g/dL (32.0-36.0); MEAN CORPUSCULAR VOLUME 97 fl (80-97); MONOCYTES % (AUTO) 6.5 % (3-13); PLATELET COUNT 116 10^3/uL (150-450); RED BLOOD COUNT 3.05 10^6/uL (4.35-5.55); RED CELL DISTRIBUTION WIDTH 12.1 % (11.5-14.0); SEGMENTED NEUTROPHILS % (AUTO) 84.3 % (42-78); TOTAL CELLS COUNTED % (AUTO) 100 %; WHITE BLOOD COUNT 9.3 10^3/uL (4.0-10.5)
[2018-04-12 07:39] LABS: ALANINE AMINOTRANSFERASE 36 U/L (21-72); ALBUMIN 2.8 g/dL (3.5-5.0); ALKALINE PHOSPHATASE 61 U/L (38-126); ANION GAP 10 (5-19); ASPARTATE AMINO TRANSFERASE 46 U/L (17-59); BILIRUBIN,DIRECT 0.3 mg/dL (0.0-0.4); BILIRUBIN,TOTAL 0.9 mg/dL (0.2-1.3); BLOOD UREA NITROGEN 20 mg/dL (7-20); CALCIUM 8.3 mg/dL (8.4-10.2); CARBON DIOXIDE 22 mmol/L (22-30); CHLORIDE 112 mmol/L (98-107); GLUCOSE 77 mg/dL (75-110); POTASSIUM 4.1 mmol/L (3.6-5.0); SODIUM 143.6 mmol/L (137-145); TOTAL PROTEIN 5.1 g/dL (6.3-8.2)
[2018-04-12] MEDS: DOCUSATE SODIUM 100 MG CAPSULE PO SCH ×2 (09:38→17:57)
[2018-04-12] MEDS: GABAPENTIN 100 MG CAPSULE PO SCH ×2 (09:38→17:57)
[2018-04-12] MEDS: POLYETHYLENE GLYCOL 3350 POWDER 17 GM/1 PACKET PO SCH (09:38)
[2018-04-12] MEDS: ASPIRIN 81 MG TABLET, CHEWABLE PO SCH (09:40)
[2018-04-12] MEDS ORDERED: OXYCODONE HCL IR 5 MG TABLET PO PRN (18:42)
[2018-04-12] MEDS ORDERED: (PENDING PHARMACY ID) (Diclofenac Sodium [Voltaren] 2 GM) TP PRN (19:39)
--- NOTE | 2018-04-12 19:44 | PDOC PROGRESS REPORT ---
Subjective Progress Note for:: 04/12/18 Subjective:: Working with physical therapy. Seems to be having a difficult time following directions. Reason For Visit: FALL,RHABDOMYLYSIS,AMS Physical Exam Vital Signs: Temp Pulse Resp BP Pulse Ox 97.6 F 71 16 127/59 H 100 04/12/18 15:13 04/12/18 15:13 04/12/18 15:13 04/12/18 15:13 04/12/18 15:13 Intake & Output 04/11/18 04/12/18 04/13/18 05:59 05:59 05:59 Intake Total 3774 Output Total 400 Balance 3374 Weight 153 lb 3.54 oz General appearance: PRESENT: no acute distress, hard of hearing Respiratory exam: PRESENT: clear to auscultation [place] Cardiovascular exam: PRESENT: RRR GI/Abdominal exam: PRESENT: soft Extremities exam: ABSENT: other - No edema Neurological exam: PRESENT: awake Skin exam: PRESENT: warm Results Laboratory Results: 04/12/18 06:13 04/12/18 06:13 04/12/18 04/12/18 06:13 06:13 WBC 9.3 RBC 3.05 L Hgb 10.1 L Hct 29.5 L MCV 97 MCH 33.1 MCHC 34.3 RDW 12.1 Plt Count 116 L Seg Neutrophils % 84.3 H Lymphocytes % 8.7 L Monocytes % 6.5 Eosinophils % 0.2 Basophils % 0.3 Absolute Neutrophils 7.8 Absolute Lymphocytes 0.8 Absolute Monocytes 0.6 Absolute Eosinophils 0.0 Absolute Basophils 0.0 Sodium 143.6 Potassium 4.1 Chloride 112 H Carbon Dioxide 22 Anion Gap 10 BUN 20 Creatinine 0.82 Est GFR ( Amer) > 60 Est GFR (Non-Af Amer) > 60 Glucose 77 Calcium 8.3 L Total Bilirubin 0.9 AST 46 ALT 36 Alkaline Phosphatase 61 Total Protein 5.1 L Albumin 2.8 L Impressions: Head CT 04/11/18 19:09 IMPRESSION: No acute intracranial findings. EVIDENCE OF ACUTE STROKE: NO. Pelvis X-Ray 04/11/18 19:09 IMPRESSION: No fracture identified. Cervical Spine CT 04/11/18 19:20 IMPRESSION: CHRONIC DEGENERATIVE CHANGES. NO ACUTE FINDINGS. Knee X-Ray 04/11/18 19:21 IMPRESSION: Small joint effusion. No fracture identified. Assessment & Plan - Diagnosis (1) Acute encephalopathy Is this a current diagnosis for this admission?: Yes Plan: Appears to have resolved. (2) Chronic back pain Qualifiers: Back pain location: low back pain Back pain laterality: bilateral Sciatica presence: with sciatica Sciatica laterality: sciatica laterality unspecified Qualified Code(s): M54.40 - Lumbago with sciatica, unspecified side; G89.29 - Other chronic pain; G89.29 - Other chronic pain Is this a current diagnosis for this admission?: Yes Plan: Appreciate orthopedics input. Pain consult pending. (3) Rhabdomyolysis Qualifiers: Rhabdomyolysis type: traumatic Encounter type: initial encounter Qualified Code(s): T79.6XXA - Traumatic ischemia of muscle, initial encounter Is this a current diagnosis for this admission?: Yes Plan: Improving. Recheck in the morning. (4) Spinal stenosis Qualifiers: Spinal region: unspecified Qualified Code(s): M48.00 - Spinal stenosis, site unspecified Is this a current diagnosis for this admission?: Yes Plan: Pain consult pending.
[2018-04-12] MEDS: SERTRALINE HCL 50 MG TABLET PO SCH (22:48)
[2018-04-12] MEDS: TAMSULOSIN HCL 0.4 MG CAP.SR.24H PO SCH (22:50)
[2018-04-12] MEDS: SIMVASTATIN 10 MG TABLET PO SCH (22:50)
[2018-04-13] MEDS: HEPARIN SOD (PORCINE) 5,000 UNIT/ML 1 ML SYRINGE SUBCUT SCH ×3 (05:09→21:00)
[2018-04-13] MEDS: POLYETHYLENE GLYCOL 3350 POWDER 17 GM/1 PACKET PO SCH (08:49)
[2018-04-13] MEDS: ASPIRIN 81 MG TABLET, CHEWABLE PO SCH (08:56)
[2018-04-13] MEDS: DOCUSATE SODIUM 100 MG CAPSULE PO SCH ×2 (08:56→16:57)
[2018-04-13] MEDS: MULTIVIT-STRESS FORMULA/ZINC TABLET PO SCH (08:57)
[2018-04-13] MEDS: GABAPENTIN 100 MG CAPSULE PO SCH ×2 (08:57→16:56)
[2018-04-13] MEDS ORDERED: MULTIVITAMIN STRESS FORMULA PO SCH (10:00)
[2018-04-13] MEDS: ACETAMINOPHEN 325 MG TABLET PO PRN ×2 (11:17→16:57)
--- NOTE | 2018-04-13 13:39 | CONSULTATION REPORT E ---
Consultation Report NAME: JETT MARSH : 1930 AGE: 87Y DATE: 04/12/2018 529 A TO: KAYLEE OVIEDO PA-C FROM: [facility] PEDERSON M.D. Requesting Physician CHIEF COMPLAINT: Chronic lower back pain. HISTORY OF PRESENT ILLNESS: This patient has a history of chronic lower back pain with radiation into bilateral lower extremities. He notes constant numbness, tingling in his bilateral lower extremities. He denies any weakness, bowel or bladder incontinence, saddle anesthesia, etcetera. He is on gabapentin for radiculopathy. He does not take any opioids on a regular basis. He was actually scheduled to have a lumbar epidural steroid injection today through Dr. Morocho's clinic, but was admitted to the hospital yesterday due to a fall at home. He does not remember falling. His son found him. He was brought to the ER and found to have altered mental status as well as an elevated CK and was admitted for this. Dr. Morocho saw the patient and requested pain management consult to consider a lumbar epidural steroid injection. The patient actually denies pain currently. He is not really interested in any pain medication at this point. His son states he has been sleeping comfortably all day in his bed. PAST MEDICAL HISTORY: Positive for: 1. Hyperlipidemia. 2. Hypertension. 3. Heart murmur. 4. PTSD. 5. Chronic lower back pain. PAST SURGICAL HISTORY: Positive for: 1. Appendectomy. 2. Bilateral total knee replacement. ALLERGIES: MORPHINE, WHICH CAUSED HALLUCINATIONS. MEDICATIONS: As per chart. SOCIAL HISTORY: Lives alone with his dog. No alcohol use or illicit drug use. REVIEW OF SYSTEMS: CONSTITUTIONAL: Patient denies fevers, chills, dizziness, weakness, loss of appetite. SKIN: Denies itching, diaphoresis. HEENT: Denies visual changes or difficulty hearing. CARDIOVASCULAR SYSTEM: Denied chest pains, edema, or heart palpitations. RESPIRATORY: Denies cough, sputum production. GASTROINTESTINAL: Denies nausea, abdominal pain, or constipation. URINARY: Denies dysuria or hematuria. MUSCULOSKELETAL: He denies back pain currently. He does note some left wrist pain. NEUROLOGIC: Denies focal weakness, bowel or bladder incontinence, saddle anesthesia. Denies any recent seizures or tremors. ENDOCRINE: Denies recent weight changes. REVIEW OF SYSTEMS: Otherwise negative. PHYSICAL EXAMINATION: GENERAL: On examination, the patient is a thin, elderly man in no acute distress. He is resting comfortably in bed. He is alert and oriented to person, place, and time, but he does not remember the fall that happened at home, but does remember being found by his son and being brought to the hospital. VITAL SIGNS: Stable. SKIN: Warm and dry. HEENT: Normocephalic, atraumatic. Extraocular muscles are intact. His pupils are equal and reactive to light. NECK: Supple and nontender. CARDIOVASCULAR SYSTEM: Radial pulses and pedal pulses are 2+ bilaterally. LUNGS: Respirations are nonlabored. ABDOMEN: Soft and nontender. EXTREMITIES: Warm and he moves them easily. NEUROLOGIC: Cranial nerves II-XII are grossly intact. 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 He is able to pump his feet. He does have difficulty standing. MUSCULOSKELETAL: No lower back tenderness currently. He does have some tenderness over his left wrist, but no swelling. PSYCHIATRIC: The patient is alert and oriented to person, place, and time. IMPRESSION AND PLAN: Chronic lower back pain. I did review the patient's lumbar MRI with the patient, which was pulled up on [facility] web site. It was from 03/24/[address] Morocho. 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 This would be on an outpatient basis. The patient also received aspirin today, so we would have to wait 7 days from to anyway and he will probably be home by then, and per his self report, his pain level is currently low, so recommend the patient follow up either with our clinic or Dr. Morocho's clinic to have this performed on an outpatient basis. The patient declined pain medications at this point, but I will go ahead and place an order for a low-dose oxycodone as needed and he can choose to take this if necessary. He has tolerated this in the past after surgeries and denies any side effects at that time. Thank you for the consult. Please call for further pain management. The patient was discussed with Dr. Dias. DICTATING PHYSICIAN: KAYLEE OVIEDO PA-C [id number] PHY#: [id number] ID: [id number] JOB#: [id number] ACCT: [id number] cc:ILIR LOUISE
--- NOTE | 2018-04-13 16:46 | PDOC PROGRESS REPORT ---
Subjective Progress Note for:: 04/13/18 Subjective:: Was able to walk from the bathroom to the bed with a walker and standby assist. Discussed the possibility of the patient going to rehab with his son. Reason For Visit: FALL,RHABDOMYLYSIS,AMS Physical Exam Vital Signs: Temp Pulse Resp BP Pulse Ox 97.6 F 66 18 142/61 H 100 04/13/18 12:00 04/13/18 14:00 04/13/18 12:00 04/13/18 12:00 04/13/18 12:00 Intake & Output 04/12/18 04/13/18 04/14/18 05:59 05:59 05:59 Intake Total 3774 491 Output Total 400 Balance 3374 491 Weight 153 lb 3.54 oz 153 lb 3.54 oz General appearance: PRESENT: no acute distress, hard of hearing, thin Respiratory exam: PRESENT: clear to auscultation [place] Cardiovascular exam: PRESENT: RRR GI/Abdominal exam: PRESENT: soft Musculoskeletal exam: PRESENT: normal inspection, other - Scar medially on his right knee from previous surgery Neurological exam: PRESENT: alert Psychiatric exam: PRESENT: appropriate affect Skin exam: PRESENT: warm Results Laboratory Results: 04/12/18 06:13 04/12/18 06:13 04/13/18 06:30 CK-MB (CK-2) 4.14 Impressions: Head CT 04/11/18 19:09 IMPRESSION: No acute intracranial findings. EVIDENCE OF ACUTE STROKE: NO. Pelvis X-Ray 04/11/18 19:09 IMPRESSION: No fracture identified. Cervical Spine CT 04/11/18 19:20 IMPRESSION: CHRONIC DEGENERATIVE CHANGES. NO ACUTE FINDINGS. Knee X-Ray 04/11/18 19:21 IMPRESSION: Small joint effusion. No fracture identified. Assessment & Plan - Diagnosis (1) Acute encephalopathy Is this a current diagnosis for this admission?: Yes Plan: Appears to have resolved. (2) Chronic back pain Qualifiers: Back pain location: low back pain Back pain laterality: bilateral Sciatica presence: with sciatica Sciatica laterality: sciatica laterality unspecified Qualified Code(s): M54.40 - Lumbago with sciatica, unspecified side; G89.29 - Other chronic pain; G89.29 - Other chronic pain Is this a current diagnosis for this admission?: Yes Plan: Appreciate orthopedics input. Pain consult pending. (3) Rhabdomyolysis Qualifiers: Rhabdomyolysis type: traumatic Encounter type: initial encounter Qualified Code(s): T79.6XXA - Traumatic ischemia of muscle, initial encounter Is this a current diagnosis for this admission?: Yes Plan: Improving. Recheck in the morning. (4) Spinal stenosis Qualifiers: Spinal region: unspecified Qualified Code(s): M48.00 - Spinal stenosis, site unspecified Is this a current diagnosis for this admission?: Yes Plan: Pain consult pending.
[2018-04-13] MEDS: TAMSULOSIN HCL 0.4 MG CAP.SR.24H PO SCH (21:00)
[2018-04-13] MEDS: SERTRALINE HCL 50 MG TABLET PO SCH (21:00)
[2018-04-13] MEDS: SIMVASTATIN 10 MG TABLET PO SCH (21:00)
[2018-04-14] MEDS: HEPARIN SOD (PORCINE) 5,000 UNIT/ML 1 ML SYRINGE SUBCUT SCH ×2 (07:42→15:11)
[2018-04-14 08:13] LABS: ALBUMIN 2.9 g/dL (3.5-5.0); ANION GAP 9 (5-19); BLOOD UREA NITROGEN 20 mg/dL (7-20); CALCIUM 8.8 mg/dL (8.4-10.2); CARBON DIOXIDE 28 mmol/L (22-30); CHLORIDE 105 mmol/L (98-107); CREATINE KINASE 249 U/L (55-170); GLUCOSE 100 mg/dL (75-110); PHOSPHORUS 3.9 mg/dL (2.5-4.5); POTASSIUM 4.1 mmol/L (3.6-5.0)
[2018-04-14] MEDS: POLYETHYLENE GLYCOL 3350 POWDER 17 GM/1 PACKET PO SCH (09:10)
[2018-04-14] MEDS: DOCUSATE SODIUM 100 MG CAPSULE PO SCH ×2 (09:10→17:16)
[2018-04-14] MEDS: GABAPENTIN 100 MG CAPSULE PO SCH ×2 (09:32→18:08)
[2018-04-14] MEDS: ASPIRIN 81 MG TABLET, CHEWABLE PO SCH (09:32)
[2018-04-14] MEDS: MULTIVIT-STRESS FORMULA/ZINC TABLET PO SCH (09:32)
--- NOTE | 2018-04-14 15:19 | PROGRESS NOTE E ---
Progress Note NAME: JETT MARSH : 1930 AGE: 87Y DATE: 04/14/2018 ROOM: 529 SUBJECTIVE: The patient is a pleasant 87-year-old male who lives at home and the patient admitted after he had a fall at home. He was found to have encephalopathy and rhabdomyolysis, is improving. OBJECTIVE: GENERAL: The patient is lying in bed, comfortable, not in distress. VITAL SIGNS: Temperature 98.1, heart rate 63, blood pressure 130/63, saturation 99% room air. HEENT: Head normocephalic, atraumatic. Pupils round, reactive to light and accommodation bilaterally. Extraocular movements intact. Ears: Tympanic membranes intact bilaterally. No discharge from the ear. No discharge from the nose. NECK: Supple, no increased JVD, no thyromegaly, no lymphadenopathy. CARDIOVASCULAR: Normal S1, S2. Regular rate and rhythm. No murmur, no gallop. RESPIRATORY: Lungs clear. ABDOMEN: Soft. MUSCULOSKELETAL: No edema. NEUROLOGIC: Awake, alert. SKIN: No rash. LABORATORY DATA: White blood count is 9.3, hemoglobin is 10. Sodium 142, potassium 4.1, creatinine 0.7. ASSESSMENT: 1. FALL. 2. STATUS POST KNEE REPLACEMENT. 3. RHABDOMYOLYSIS, IMPROVED WITH HYDRATION. 4. SPINAL STENOSIS. PLAN: 1. Continue IV fluids for rehydration for now. 2. Physical therapy. 3. The patient needs placement in rehab. 4. Medical necessity; IV fluids and he needs rehab placement. DICTATING PHYSICIAN: PINA AMES M.D. [id number] KELBY#: [id number] ID: [id number] JOB#: [id number] ACCT: [id number] cc: > MTDD
[2018-04-14] MEDS: SERTRALINE HCL 50 MG TABLET PO SCH (21:46)
[2018-04-14] MEDS: TAMSULOSIN HCL 0.4 MG CAP.SR.24H PO SCH (21:46)
[2018-04-14] MEDS: SIMVASTATIN 10 MG TABLET PO SCH (21:46)
[2018-04-15] MEDS: ASPIRIN 81 MG TABLET, CHEWABLE PO SCH (07:43)
[2018-04-15] MEDS: DOCUSATE SODIUM 100 MG CAPSULE PO SCH ×2 (10:13→17:09)
[2018-04-15] MEDS: MULTIVIT-STRESS FORMULA/ZINC TABLET PO SCH (10:13)
[2018-04-15] MEDS: GABAPENTIN 100 MG CAPSULE PO SCH ×2 (10:13→17:09)
[2018-04-15] MEDS: POLYETHYLENE GLYCOL 3350 POWDER 17 GM/1 PACKET PO SCH (10:13)
--- NOTE | 2018-04-15 16:09 | PROGRESS NOTE E ---
Progress Note NAME: JETT MARSH : 1930 AGE: 87Y DATE: 04/15/2018 ROOM: 529 SUBJECTIVE: The patient is an 87-year-old male who lives at home, and the patient *------* after he fell at home. He was found to have encephalopathy and rhabdomyolysis. Continues improving. OBJECTIVE: GENERAL: Patient lying in bed, comfortable. Not in distress. VITAL SIGNS: Blood pressure is 164/71, temperature 98.7, heart rate is 80, saturation 99% on room air. HEENT: Normocephalic, atraumatic. Pupils round, reactive to light and accommodation bilaterally. Extraocular movements intact. Ears: Tympanic membranes intact bilaterally. No discharge from the ears. No discharge from the nose. NECK: Supple. No increased JVD, no thyromegaly, no lymphadenopathy. CARDIOVASCULAR: Normal S1, S2. Regular rate and rhythm. No murmur, no gallop. RESPIRATORY: Lungs clear. ABDOMEN: Soft, nontender. MUSCULOSKELETAL: No edema. NEUROLOGIC: Awake, alert. SKIN: No rash. LABORATORY DATA: Sodium is 142, potassium is 12.1. White blood count 9.3, hemoglobin is 10. ASSESSMENT: 1. FALL. 2. STATUS POST KNEE REPLACEMENT. 3. RHABDOMYOLYSIS. 4. DEHYDRATION, IMPROVED. 5. SPINAL STENOSIS. PLAN: Continue to monitor IV fluids. Patient needs rehabilitation placement. stock worker consulted. MEDICAL NECESSITY: Needs placement. DICTATING PHYSICIAN: PINA AMES M.D. [id number] PHY#: [id number] ID: [id number] JOB#: [id number] ACCT: [id number] cc: >
[2018-04-15] MEDS: SIMVASTATIN 10 MG TABLET PO SCH (21:21)
[2018-04-15] MEDS: TAMSULOSIN HCL 0.4 MG CAP.SR.24H PO SCH (21:22)
[2018-04-15] MEDS: SERTRALINE HCL 50 MG TABLET PO SCH (21:22)
[2018-04-16 07:31] LABS: ABSOLUTE EOSINOPHILS # (AUTO) 0.1 10^3/uL (0.0-0.6); ABSOLUTE LYMPHOCYTES (AUTO) 0.9 10^3/uL (0.5-4.7); ABSOLUTE MONOCYTES (AUTO) 0.6 10^3/uL (0.1-1.4); ABSOLUTE NEUT (AUTO) 5.1 10^3/uL (1.7-8.2); BASOPHILS % (AUTO) 0.3 % (0-2); EOSINOPHILS % (AUTO) 1.3 % (0-6); HEMATOCRIT 31.5 % (37.9-51.0); HEMOGLOBIN 10.8 g/dL (13.5-17.0); LYMPHOCYTES % (AUTO) 13.8 % (13-45); MEAN CORPUSCULAR HEMOGLOBIN 33.1 pg (27.0-33.4); MEAN CORPUSCULAR HGB CONC 34.2 g/dL (32.0-36.0); MEAN CORPUSCULAR VOLUME 97 fl (80-97); MONOCYTES % (AUTO) 9.6 % (3-13); PLATELET COUNT 127 10^3/uL (150-450); RED BLOOD COUNT 3.25 10^6/uL (4.35-5.55); RED CELL DISTRIBUTION WIDTH 11.9 % (11.5-14.0); TOTAL CELLS COUNTED % (AUTO) 100 %; WHITE BLOOD COUNT 6.8 10^3/uL (4.0-10.5)
[2018-04-16] MEDS: ASPIRIN 81 MG TABLET, CHEWABLE PO SCH (07:51)
[2018-04-16 08:01] LABS: ALBUMIN 3.1 g/dL (3.5-5.0); ANION GAP 7 (5-19); BLOOD UREA NITROGEN 28 mg/dL (7-20); CALCIUM 8.9 mg/dL (8.4-10.2); CARBON DIOXIDE 31 mmol/L (22-30); CHLORIDE 104 mmol/L (98-107); GLUCOSE 107 mg/dL (75-110); PHOSPHORUS 3.6 mg/dL (2.5-4.5); POTASSIUM 4.8 mmol/L (3.6-5.0); SODIUM 142.3 mmol/L (137-145)
[2018-04-16] MEDS: POLYETHYLENE GLYCOL 3350 POWDER 17 GM/1 PACKET PO SCH (09:39)
[2018-04-16] MEDS: GABAPENTIN 100 MG CAPSULE PO SCH ×2 (09:39→17:55)
[2018-04-16] MEDS: DOCUSATE SODIUM 100 MG CAPSULE PO SCH ×2 (09:39→17:55)
[2018-04-16] MEDS: MULTIVIT-STRESS FORMULA/ZINC TABLET PO SCH (09:39)
[2018-04-16] MEDS: SIMVASTATIN 10 MG TABLET PO SCH (21:25)
[2018-04-16] MEDS: TAMSULOSIN HCL 0.4 MG CAP.SR.24H PO SCH (21:25)
[2018-04-16] MEDS: SERTRALINE HCL 50 MG TABLET PO SCH (21:25)
[2018-04-16] MEDS ORDERED: TAMSULOSIN HCL 0.4 MG CAP.SR.24H PO SCH (22:00)
--- NOTE | 2018-04-16 22:09 | PDOC PROGRESS REPORT ---
Subjective Progress Note for:: 04/16/18 Subjective:: 87-year-old found to have rhabdomyolysis and encephalopathy after a fall and a prolonged period on the floor in his home. Patient desires to return home. Spoke with him at length today about the benefits of going to a rehab facility initially before going home. He is currently getting his son to help see if the [facility] can [facility] a caregiver in the home. Spoke with discharge planning about him and would proceed with placement in a rehab facility at present. Orthopedics did evaluate patient with his lower extremity weakness and offered injections for his lumbar stenosis. These can be obtained in an outpatient setting. Reason For Visit: FALL,RHABDOMYLYSIS,AMS Physical Exam Vital Signs: Temp Pulse Resp BP Pulse Ox 98 F 77 16 134/56 H 98 04/16/18 16:00 04/16/18 19:00 04/16/18 16:00 04/16/18 16:00 04/16/18 16:00 Intake & Output 04/15/18 04/16/18 04/17/18 06:59 06:59 06:59 Intake Total 1139 1035 829 Balance 1139 1035 829 Weight 67.5 kg 67.1 kg General appearance: PRESENT: no acute distress, thin Head exam: PRESENT: atraumatic, normocephalic Eye exam: PRESENT: EOMI, PERRLA Ear exam: PRESENT: normal external ear exam. ABSENT: bleeding Mouth exam: PRESENT: moist, neck supple Throat exam: ABSENT: tonsillar exudate, tonsillogmegaly Neck exam: ABSENT: tenderness, thyromegaly Respiratory exam: ABSENT: rales, rhonchi, wheezes Cardiovascular exam: PRESENT: RRR, +S1, +S2 Pulses: PRESENT: normal radial pulses, normal dorsalis pedis pul GI/Abdominal exam: PRESENT: soft. ABSENT: hyperactive bowel sounds, hypoactive bowel sounds, mass, rebound, rigid Musculoskeletal exam: PRESENT: full ROM, normal inspection Neurological exam: PRESENT: alert, oriented to person, oriented to place, CN II- XII grossly intact Psychiatric exam: ABSENT: agitated, anxious, manic Focused psych exam: ABSENT: paranoid, pressured speech Skin exam: ABSENT: erythema, mottled, pallor Results Laboratory Results: 04/16/18 06:44 04/16/18 06:44 04/16/18 04/16/18 06:44 06:44 WBC 6.8 RBC 3.25 L Hgb 10.8 L Hct 31.5 L MCV 97 MCH 33.1 MCHC 34.2 RDW 11.9 Plt Count 127 L Seg Neutrophils % 75.0 Lymphocytes % 13.8 Monocytes % 9.6 Eosinophils % 1.3 Basophils % 0.3 Absolute Neutrophils 5.1 Absolute Lymphocytes 0.9 Absolute Monocytes 0.6 Absolute Eosinophils 0.1 Absolute Basophils 0.0 Sodium 142.3 Potassium 4.8 Chloride 104 Carbon Dioxide 31 H Anion Gap 7 BUN 28 H Creatinine 0.99 Est GFR ( Amer) > 60 Est GFR (Non-Af Amer) > 60 Glucose 107 Calcium 8.9 Phosphorus 3.6 Magnesium 1.9 Albumin 3.1 L 04/13/18 04/14/18 06:30 07:10 Creatine Kinase 249 H CK-MB (CK-2) 4.14 Impressions: Head CT 04/11/18 19:09 IMPRESSION: No acute intracranial findings. EVIDENCE OF ACUTE STROKE: NO. Pelvis X-Ray 04/11/18 19:09 IMPRESSION: No fracture identified. Cervical Spine CT 04/11/18 19:20 IMPRESSION: CHRONIC DEGENERATIVE CHANGES. NO ACUTE FINDINGS. Knee X-Ray 04/11/18 19:21 IMPRESSION: Small joint effusion. No fracture identified. Assessment & Plan - Diagnosis (1) Rhabdomyolysis Qualifiers: Rhabdomyolysis type: traumatic Encounter type: initial encounter Qualified Code(s): T79.6XXA - Traumatic ischemia of muscle, initial encounter Is this a current diagnosis for this admission?: Yes Plan: CK level now down to normal range, patient doing well can resume oral hydration , and normal meals. 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 Describes limitations in mobility and activities of daily living. Would recommend that this patient undergo rehab placement. This was discussed with the social services coordinator today. Patient is interested in his son assisting him and getting of the [facility] supported in-home caregiver. production planner states that this may take weeks to set up. Not convinced that patient would be safe in his home environment without this assistance. (3) Lumbar canal stenosis Is this a current diagnosis for this admission?: Yes Plan: Therapeutics evaluated patient and offered him injections for his spinal cord stenosis. These can be coordinated in the outpatient setting. Patient is expected to benefit from rehab/physical therapy at discharge given his lower extremity weakness. (4) Dehydration Is this a current diagnosis for this admission?: Yes Plan: Dehydration resolved. (5) Fall Qualifiers: Encounter type: initial encounter Qualified Code(s): W19.XXXA - Unspecified fall, initial encounter Is this a current diagnosis for this admission?: Yes Plan: Physical therapy to continue working with patient, will benefit from rehab setting. - Time Time Spent with patient: 15-24 minutes - Inpatient Certification Based on my medical assessment, after consideration of the patient's comorbidities, presenting symptoms, or acuity I expect that the services needed warrant INPATIENT care.: Yes I certify that my determination is in accordance with my understanding of Medicare's requirements for reasonable and necessary INPATIENT services [42 CFR 412.3e].: Yes Medical Necessity: Significant Comorbidiites Make Outpatient Treatment Too Risky , Need Close Monitoring Due to Risk of Patient Decompensation
[2018-04-17 07:00] LABS: HEMATOCRIT 32.3 % (37.9-51.0); MEAN CORPUSCULAR HEMOGLOBIN 33.2 pg (27.0-33.4); MEAN CORPUSCULAR HGB CONC 34.1 g/dL (32.0-36.0); MEAN CORPUSCULAR VOLUME 97 fl (80-97); PLATELET COUNT 111 10^3/uL (150-450); RED BLOOD COUNT 3.32 10^6/uL (4.35-5.55); RED CELL DISTRIBUTION WIDTH 12.4 % (11.5-14.0); WHITE BLOOD COUNT 7.3 10^3/uL (4.0-10.5)
[2018-04-17 07:33] LABS: ALBUMIN 3.4 g/dL (3.5-5.0); ANION GAP 7 (5-19); BLOOD UREA NITROGEN 36 mg/dL (7-20); CARBON DIOXIDE 30 mmol/L (22-30); CHLORIDE 103 mmol/L (98-107); GLUCOSE 116 mg/dL (75-110); PHOSPHORUS 3.8 mg/dL (2.5-4.5); POTASSIUM 4.8 mmol/L (3.6-5.0); SODIUM 139.7 mmol/L (137-145)
[2018-04-17] MEDS: POLYETHYLENE GLYCOL 3350 POWDER 17 GM/1 PACKET PO SCH (09:18)
[2018-04-17] MEDS: DOCUSATE SODIUM 100 MG CAPSULE PO SCH ×2 (09:28→17:48)
[2018-04-17] MEDS: MULTIVIT-STRESS FORMULA/ZINC TABLET PO SCH (09:28)
[2018-04-17] MEDS: ASPIRIN 81 MG TABLET, CHEWABLE PO SCH (09:29)
[2018-04-17] MEDS: GABAPENTIN 100 MG CAPSULE PO SCH ×2 (09:29→17:48)
[2018-04-17] MEDS: TAMSULOSIN HCL 0.4 MG CAP.SR.24H PO SCH (21:13)
[2018-04-17] MEDS: SIMVASTATIN 10 MG TABLET PO SCH (21:13)
[2018-04-17] MEDS: SERTRALINE HCL 50 MG TABLET PO SCH (21:13)
[2018-04-18] MEDS: DOCUSATE SODIUM 100 MG CAPSULE PO SCH (09:43)
[2018-04-18] MEDS: ASPIRIN 81 MG TABLET, CHEWABLE PO SCH (09:43)
[2018-04-18] MEDS: MULTIVIT-STRESS FORMULA/ZINC TABLET PO SCH (09:44)
[2018-04-18] MEDS: POLYETHYLENE GLYCOL 3350 POWDER 17 GM/1 PACKET PO SCH (09:45)
[2018-04-18] MEDS: GABAPENTIN 100 MG CAPSULE PO SCH (09:45)
[2018-04-18 12:05] VITALS: BP 126/61
--- NOTE | 2018-04-18 13:42 | PDOC DISCHARGE SUMMARY ---
General - Admit/Disc Date/PCP Admission Date/Primary Care Provider: 04/11/18 22:44 Discharge Date: 04/18/18 - Discharge Diagnosis (1) Rhabdomyolysis Is this a current diagnosis for this admission?: Yes Summary: Presented after being found down. CK elevated at 1425 on 04/11. With IVF and rest has downtreneded nicely. Last check was 249 on 04/14. Anticipate it has returned to WNL at time of discharge (no evidence for re-checking level). (2) Lumbar canal stenosis Is this a current diagnosis for this admission?: Yes Summary: Noted on outpatient MRI. ORtho was consulted and recommended medical management. An epidural steroid injection was recommended. Will defer to outpatient. (3) Acute encephalopathy Is this a current diagnosis for this admission?: Yes Summary: Improved at discharge. Holmes to be secondary to opiod use. (4) Dehydration Is this a current diagnosis for this admission?: Yes Summary: Resolved. Renal function at baseline. (5) Fall Is this a current diagnosis for this admission?: Yes Summary: Has had frequent falls at home. Likely due to deconditioning and polypharmacy including use of opiods at home. Would limit use of narcotics to prevent additional falls. Should work with PT at home. Home services ordered. - Additional Information Resuscitation Status: Full Code Discharge Diet: Cardiac Discharge Activity: Activity As Tolerated, Balance Activity w/Rest Home Medications: Aspirin [Aspirin EC] 81 mg PO DAILY 04/12/18 Diclofenac Sodium [Voltaren] 2 gm TP TIDP PRN 04/12/18 Docusate Sodium [Colace 100 mg Capsule] 100 mg PO QPM 04/12/18 Multivitamin,Stress Formula [Stress Formula] 1 each PO DAILY 04/12/18 Psyllium Husk/Aspartame [Metamucil Fiber Singles Packet] 3.4 gm PO DAILYP PRN Saw Maysel Fruit [Saw Maysel] 450 mg PO DAILY 04/12/18 Sertraline HCl [Zoloft 50 mg Tablet] 50 mg PO QHS 04/12/18 Tamsulosin HCl [Flomax 0.4 mg Cap.sr] 0.4 mg PO QHS 04/12/18 History of Present Illness History of Present Illness: JETT MARSH is a 87 year old male with history of PTSD, hypertension, dyslipidemia, osteoarthritis, spinal stenosis, gait instability with frequent falls and chronic pain. Patient presents via EMS from home after he was found laying on the ground at home, not recalling a fall he is alert oriented 2 with pinpoint pupils he was last seen at baseline 12 hours prior. Patient recently seen by orthopedic surgery with a scheduled epidural tomorrow April 12, 2018. In the emergency room he has an unremarkable imaging and workup with exception to elevated total CK of 1425 and leukocytosis without fever. Patient denies previous episode denies new medications however patient is known to have a supply of pain medication not retrieved by EMS. Admitted to hospitalist service. Physical Exam Vital Signs: Temp Pulse Resp BP Pulse Ox 98.0 F 73 16 126/61 H 97 04/18/18 12:00 04/18/18 12:00 04/18/18 12:00 04/18/18 12:00 04/18/18 12:00 Intake & Output 04/17/18 04/18/18 04/19/18 06:59 06:59 06:59 Intake Total 829 1450 Balance 829 1450 Weight 67.1 kg 67.1 kg General appearance: PRESENT: no acute distress, cooperative, hard of hearing, thin Head exam: PRESENT: normocephalic Mouth exam: PRESENT: moist Respiratory exam: PRESENT: unlabored. ABSENT: tachypnea, wheezes Cardiovascular exam: PRESENT: +S1, +S2. ABSENT: tachycardia GI/Abdominal exam: PRESENT: soft. ABSENT: tenderness Extremities exam: ABSENT: pedal edema Neurological exam: PRESENT: alert, awake, oriented to person, CN II-XII grossly intact. ABSENT: oriented to place, oriented to time Focused psych exam: PRESENT: other - Pleasant, baseline dementia Skin exam: PRESENT: dry. ABSENT: erythema Results Laboratory Results: 04/17/18 06:38 04/17/18 06:38 04/13/18 04/14/18 06:30 07:10 Creatine Kinase 249 H CK-MB (CK-2) 4.14 Impressions: Head CT 04/11/18 19:09 IMPRESSION: No acute intracranial findings. EVIDENCE OF ACUTE STROKE: NO. Pelvis X-Ray 04/11/18 19:09 IMPRESSION: No fracture identified. Cervical Spine CT 04/11/18 19:20 IMPRESSION: CHRONIC DEGENERATIVE CHANGES. NO ACUTE FINDINGS. Knee X-Ray 06/06/18 19:21 IMPRESSION: Small joint effusion. No fracture identified. Qualifiers - * PATIENT BEING DISCHARGED WITH ANY OF THE FOLLOWING DIAGNOSIS: No
== END 2018-04-18 13:42 | disposition home health service (06) | DRG 564 ==
LOC: ER 18:47 → EH 22:44 → 5 04-12 01:11
PROVIDERS: ADMIT Internal Medicine; ATTEND Internal Medicine
DX: T79.6XXA Traumatic ischemia of muscle, initial encounter (principal); G92 Toxic encephalopathy; M79.669 Pain in unspecified lower leg; M54.40 Lumbago with sciatica, unspecified side; M48.061 Spinal stenosis, lumbar region without neurogenic claudication; G62.9 Polyneuropathy, unspecified; T40.605A Adverse effect of unspecified narcotics, initial encounter; E78.00 Pure hypercholesterolemia, unspecified; E86.0 Dehydration; I10 Essential (primary) hypertension; R01.1 Cardiac murmur, unspecified; K21.9 Gastro-esophageal reflux disease without esophagitis; F43.10 Post-traumatic stress disorder, unspecified; Y92.230 Patient room in hospital as the place of occurrence of the external cause; W19.XXXA Unspecified fall, initial encounter; Z91.81 History of falling; Z60.2 Problems related to living alone
CPT/HCPCS: 36415; 70450; 72125; 72170; 80053; 80069; 80307; 81001; 82550; 82553; 83735; 84443; 84484; 85025; 85027; 93005; 93010; 96360; 99285; G8978-GP; G8979-GP; G8987-GO; G8988-GO; J3490; J7030

== ENCOUNTER 2018-11-24 11:50 | Emergency (ER) | payer MEDICARE, OTHER ==
[2018-11-24] MEDS ORDERED: LIDOCAINE 1% INJ-PF (10 MG/ML) 30 ML SDV INJ ONE (13:01)
--- NOTE | 2018-11-24 13:41 | RADIOLOGY REPORT (SQ) ---
EXAM DESCRIPTION: FOOT RIGHT COMPLETE COMPLETED DATE/TIME: 11/24/2018 1:29 pm REASON FOR STUDY: pain at 2/3/4th toes COMPARISON: None. NUMBER OF VIEWS: Three views. TECHNIQUE: AP, lateral and oblique without weight bearing radiographic images acquired of the right foot. LIMITATIONS: None. FINDINGS: MINERALIZATION: Mild osteopenia. BONES: No acute fracture or dislocation. No worrisome bone lesions. Calcaneal spurs. JOINTS: No erosions. No amparo-articular osteopenia. No chondrocalcinosis. SOFT TISSUES: No swelling. No calcifications. OTHER: No other significant finding. IMPRESSION: MILD OSTEOPENIA. CALCANEAL SPURS. NO OTHER SIGNIFICANT FINDINGS. TECHNICAL DOCUMENTATION: JOB ID: [id number] [employer]- All Rights Reserved Reading location - IP/workstation name: [email or web address]
--- NOTE | 2018-11-24 14:30 | ER Document Report ---
HPI - HPI Time Seen by Provider: 11/24/18 12:24 Pain Level: 4 Notes: Patient is an 88-year-old male who presents with chief complaints of right second toe injury. He is accompanied by his son. Patient's son reports that patient stubbed his toe on something and has bruising to the third and fourth toes and his toenail is avulsed on his second toe. Patient does not take any blood thinners. - EENT EENT: DENIES: Sore Throat - REPRODUCTIVE Reproductive: DENIES: : - MUSCULOSKELETAL Musculoskeletal: REPORTS: Extremity pain - right 2nd and 3rd metatarsal Past Medical History - General Information source: Patient - Social History Smoking Status: Never Smoker Chew tobacco use (# tins/day): No Frequency of alcohol use: None Drug Abuse: None Family History: Hypertension Patient has suicidal ideation: No Patient has homicidal ideation: No - Past Medical History Cardiac Medical History: Reports: Hx Hypercholesterolemia - meds x 10 years, Hx Hypertension - HX OF (TOOK OFF MEDS), Hx Heart Murmur - Dx'ed approx 6 years ago, denies SBE prophylaxis Denies: Hx Atrial Fibrillation, Hx Congestive Heart Failure, Hx Coronary Artery Disease, Hx Heart Attack, Hx Peripheral Vascular Disease Pulmonary Medical History: Denies: Hx Asthma, Hx Bronchitis, Hx COPD, Hx Pneumonia Neurological Medical History: Denies: Hx Cerebrovascular Accident, Hx Seizures Renal/ Medical History: Denies: Hx Benign Prostatic Hyperplasia, Hx End Stage Renal Disease, Hx Kidney Stones, Hx Peritoneal Dialysis GI Medical History: Reports: Hx Gastroesophageal Reflux Disease - Prilosec daily. Denies: Hx Crohn's Disease, Hx Hiatal Hernia, Hx Irritable Bowel, Hx Liver Failure, Hx Pancreatitis, Hx Ulcer Musculoskeletal Medical History: Reports Hx Arthritis, Denies Hx Fibromyalgia, Denies Hx Multiple Sclerosis, Denies Hx Muscular Dystrophy Psychiatric Medical History: Reports: Hx Post Traumatic Stress Disorder - states Zoloft effective to decrease nighttime symptoms Denies: Hx Bipolar Disorder, Hx Dementia, Hx Depression, Hx Schizophrenia Traumatic Medical History: Reports: Hx Fractures - carrington arms (as child) Past Surgical History: Reports: Hx Appendectomy - 1952, Hx Herniorrhaphy - RT ing. 1991. Denies: Hx Bowel Surgery, Hx Cholecystectomy, Hx Colostomy, Hx Cor onary Artery Bypass Graft, Hx Gastric Bypass Surgery, Hx Pacemaker, Hx Tonsillectomy - Immunizations Hx Diphtheria, Pertussis, Tetanus Vaccination: No Vertical Provider Document - CONSTITUTIONAL Notes: PHYSICAL EXAMINATION: GENERAL: Well-appearing, well-nourished and in no acute distress. HEAD: Atraumatic, normocephalic. EYES: Pupils equal round extraocular movements intact, conjunctiva are normal. ENT: Nares patent NECK: Normal range of motion LUNGS: No respiratory distress Musculoskeletal: Normal range of motion, ecchymosis noted to right third and fourth toes, right second toe nail is hanging by a small area of skin. NEUROLOGICAL: Normal speech, normal gait. PSYCH: Normal mood, normal affect. SKIN: Warm, Dry, normal turgor, no rashes or lesions noted. - INFECTION CONTROL TRAVEL OUTSIDE OF THE [place] IN LAST 30 DAYS: No Course - Re-evaluation Re-evalutation: X-ray was obtained and is negative for any acute findings to include fracture or dislocated phalanges. Nail was removed from right second toe without difficulty and without complication. Xeroform dressing was placed. Patient's son given dressing care instructions. - Vital Signs Vital signs: Temp Pulse Resp BP Pulse Ox 97.8 F 74 16 157/72 H 97 11/24/18 12:05 11/24/18 12:05 11/24/18 12:05 11/24/18 12:05 11/24/18 12:05 Procedures - Nail Trephanation/Removal Right Foot 2nd digit Nail Trepanation/Removal Location: Right second toe Betadine prep applied: Yes Sterile Dressing Applied: Yes Discharge - Discharge Clinical Impression: Nailbed injury Condition: Stable Disposition: HOME, SELF-CARE Additional Instructions: Avulsed Nail You have had a nail avulsion. The nail will regrow, usually with no deformity. The complete process of regrowth takes about three months. (Toenails take about twice as long as fingernails.) Your new nail will be thin and easily injured for about a year. The nail bed (the tissue beneath the nail) will be oozy and tender for about ten days. During this time, it will need protection with bandages. The dressings should be changed every day, or whenever wet or dirty. A small amount of ointment directly on the nail bed can keep dressings from sticking. After early healing (five or six days), you'll want to dry out the nail bed. This is usually done with epsom soaks followed by air exposure. When the nail bed has formed a tough, dry, and non-tender membrane, you may stop dressing it. If redness, swelling, increasing tenderness, drainage, or tender lumps in the groin or armpit above the avulsion occur, call the doctor at once. Please change the dressing that I applied and about 24 hours. After that please apply a small amount of triple antibiotic ointment directly to the nailbed at least twice a day. Please have him take Tylenol or ibuprofen as directed on the bottles for any pain or inflammation. Elevating the area may help with any soreness or inflammation. Please take all antibiotics as prescribed and finish the entire course. Prescriptions: Cephalexin [Cephalexin 500 MG Tablet] 500 mg PO BID #14 tablet
[2018-11-24 14:42] VITALS: BP 156/62
== END 2018-11-24 14:41 | disposition home or self-care (01) ==
LOC: ER 11:50
DX: S90.221A Contusion of right lesser toe(s) with damage to nail, initial encounter (principal); X58.XXXA Exposure to other specified factors, initial encounter; I10 Essential (primary) hypertension
CPT/HCPCS: 99283; 73630; 11750; J3490